=== PATIENT | female | born 1955 | race Caucasian/White ===

== ENCOUNTER → 2017-09-22 17:32 | Outpatient (CLI) | payer OTHER, SELFPAY ==
--- NOTE | 2017-09-22 17:30 | MRI_ITS ---
STUDY: MRI LUMBAR SPINE WITHOUT CONTRAST REASON FOR EXAM: Female, 62 years old. Low back and bilateral leg pain with burning sensation legs. TECHNIQUE: Standardized fat and water weighted pulse sequences were obtained in the sagittal and axial planes. COMPARISON: None FINDINGS: There are six non-rib bearing lumbar-like vertebra. For the purpose of this report, the most caudal non-rib bearing vertebra is considered to represent the S1 vertebra, consistent with lumbarization of the S1 vertebra. Plain film x-ray examination of the lumbar spine would be necessary for level verification prior to instrumentation, or surgery, based on the findings of this report. There is an exaggerated lumbar lordosis. There is a mild levoscoliosis of the lumbar spine. Normal conus medullaris that terminates at the inferior endplate of L1 vertebra. L1-2: There is disc desiccation, severe loss of the disc height, endplate spondylosis with annular bulging. There is a prominent Schmorl's node deformity the superior endplate of the L2 vertebra. This mild facet arthrosis. Normal central canal with patent intervertebral neural foramina. L2-3: There is a wedge-shaped deformity of the anterior column of the L3 vertebra with an estimated 20% loss of vertical height but without bone marrow edema. There are prominent Schmorl's node deformities of the right parasagittal regions of the superior and inferior endplate of the L3 vertebra (coronal T1 series 7, image 9; sagittal T2 series 8, image 8). There is broad-based posterior bulging with a right foraminal disc osteophyte complex (sagittal T2 series 2, image 10, superimposed upon mild facet arthrosis. There remains a normal central canal. The intervertebral neural foramina remain patent without morphologic neural impingement. L3-4: There is collapse of the intervertebral disc with endplate irregularity and a prominent Schmorl's node deformity superior endplate of the L4 vertebra with mild juxta-endplate bone marrow edema most compatible with type I discogenic endplate degeneration. There is a 5 mm L3 retrolisthesis relationship to the L4 vertebra with uncovering the annulus and with mild annular bulging. There is moderate retrodiscal foraminal narrowing of the right side (sagittal T2 series 2, image 10; sagittal T1 series 3, image 10), but without demonstrated neural impingement. Normal central canal and patent left L2-3 intervertebral neural foramina. L4-5: There is disc desiccation, severe loss of the disc height posteriorly with moderate bilateral facet arthrosis with osseous and ligamentous hypertrophy. There is a 5 mm L4 retrolisthesis in relationship to the L5 vertebra with diffuse uncovering the annulus and with annular bulging. Normal central canal with patent intervertebral neural foramina. L5-S1: There is disc desiccation, mild to moderate loss of the disc height posteriorly, mild circumferential annular bulging with severe bilateral hypertrophic facet arthrosis, with both osseous and ligamentous hypertrophy (axial T2 series 5, image 11). Normal central canal with patent intervertebral neural foramina. S1-2: There is partial lumbarization the S1 vertebra (coronal T1 series 7, image 12). There is disc desiccation, mild loss of the disc height, minimal annular bulging and severe facet arthrosis. Normal central canal with patent intervertebral neural foramina. There is possible bilateral spondylolysis of the pars interarticulares (sagittal T1 series 3, images 4 and 13; axial T2 series 5, image 9; axial T1 series 6, image 9), however there is no demonstrated spondylolisthesis. CT imaging would be necessary for confirmation of spondylolysis. Normal visualized sacral ala. There is a solitary intraosseous low signal lesion suggesting intraosseous area of ossification within the right iliac wing (sagittal T1 series 7, image 13; axial T2 series 5, image 9), of indeterminate etiology. No additional osseous lesions can be identified within the vertebral bodies. This probably represents a bone island however further evaluation is recommended to exclude an osteoblastic lesion. Normal visualized paraspinous soft tissue structures. MRI/Spine Lumbar (Routine) IMPRESSION: 1. There are six non-rib bearing lumbar-like vertebra. For the purpose of this report, the most caudal non-rib bearing vertebra is considered to represent the S1 vertebra, consistent with lumbarization of the S1 vertebra. Plain film x-ray examination of the lumbar spine would be necessary for level verification prior to instrumentation, or surgery, based on the findings of this report. 2. Solitary intraosseous low signal lesion within the right iliac wing of indeterminate etiology. This probably represents a bone island. No additional lesions can be identified. Further evaluation however is recommended to exclude an osteoblastic lesion. 3. Multilevel degenerative disease, endplate spondylosis and facet arthroses of the entire lumbar spine with an exaggerated lordosis and levoscoliosis. 4. Wedge-shaped deformity of the L3 vertebra with prominent Schmorl's node deformities. 5. L3 retrolisthesis. 6. Normal central canal and patent intervertebral neural foramina at all levels. N.B. : The above information has been verbally conveyed by Bryan Zhu DO to , Referring Physician, on 09/23/2017 14:20:00 (ET). Electronically Signed: Bryan Zhu DO at 13:38 EDT Tel , Service support , N.B. : The above information has been verbally conveyed by Bryan Zhu DO to , Referring Physician, on 09/23/2017 14:20:00 (ET).
== END ==
PROVIDERS: Family Provider Family Medicine; PCP Family Medicine; Visit Provider Anesthesiology
DX: M54.16 Radiculopathy, lumbar region (principal)
CPT/HCPCS: 72148

== ENCOUNTER → 2017-09-23 17:04 | Outpatient (CLI) | payer OTHER, SELFPAY ==
--- NOTE | 2017-09-23 17:13 | RAD_ITS ---
STUDY: X-RAY - THORACIC SPINE REASON FOR EXAM: Female, 62 years old. Bony lesion found on MRI, follow-up. TECHNIQUE: 3 view(s) of the thoracic spine were obtained. COMPARISON: None. FINDINGS: Normal kyphosis of the thoracic spine. There is no substantial scoliosis. There is demineralization of the thoracic spine with endplate spondylosis. There is multilevel disc space narrowing of the thoracic spine. The soft tissue structures are unremarkable. RAD/Thoracic Spine 3 Views IMPRESSION: Diffuse degenerative changes with no evidence of compression deformity, sclerotic lesion or malalignment. Electronically Signed: Kirill Mariscal DO at 9:48 EDT , Service support ,
--- NOTE | 2017-09-23 17:13 | RAD_ITS ---
STUDY: X-RAY - LUMBAR SPINE REASON FOR EXAM: Female, 62 years old. Bony lesion found on MRI. Bilateral radiculopathy. TECHNIQUE: 3 view(s) of the lumbar spine were obtained. COMPARISON: None FINDINGS: Normal lumbar lordosis. Mild degenerative levoscoliotic curve is present. There is a normal alignment of the vertebrae. There is diffuse demineralization with multi-level endplate spondylosis. There is multi-level degenerative disc disease with multi-level disc space narrowing. There is predominant degenerative change at C2-3 with chronic appearing wedge shape deformity of L1 and superior endplate of L2. Diffuse facet arthropathy is present most prominent at the right C4/5 region. The soft tissue structures are unremarkable. RAD/Lumbar Spine 2 or 3 Views IMPRESSION: Diffuse degenerative changes with chronic appearing wedge shape deformity of L1 and compression of the superior endplate of L2. Severe right L4/5 facet arthropathy. Electronically Signed: Kirill Mariscal DO at 9:50 EDT , Service support ,
--- NOTE | 2017-09-23 17:14 | RAD_ITS ---
STUDY: X-RAY - SACRUM/COCCYX REASON FOR EXAM: Female, 62 years old. Bony lesion found on MRI. TECHNIQUE: 3 view(s) of the sacrum and coccyx were obtained. COMPARISON: None. FINDINGS: Normal bilateral sacroiliac joints. Normal visualized sacral ala and fused sacral bodies. Normal sacrococcygeal junction with a normal angulation. Normal coccygeal segments. The presacral soft tissue structures are unremarkable. There is a dense sclerotic region within the right medial iliac bone consistent with bone island measuring approximately 1.7 cm. RAD/Sacrum-Coccyx min 2 Views IMPRESSION: 1. Right iliac incidental bone island with otherwise no evidence of acute process. Electronically Signed: Kirill Mariscal DO at 9:48 EDT , Service support ,
--- NOTE | 2017-09-23 17:14 | RAD_ITS ---
STUDY: X-RAY - PELVIS REASON FOR EXAM: Female, 62 years old. Bony lesion from an MRI TECHNIQUE: One view of the pelvis was obtained. COMPARISON: None. FINDINGS: Bilateral total hip replacements with hardware position. There are no acute fractures or dislocations. A bone island is identified in the right upper iliac bone RAD/Pelvis 1 or 2 Views IMPRESSION: Total hip replacements with hardware in good position. No fracture. A 1.5 cm bone island in the right iliac bone near the crest Electronically Signed: Oleg Ambriz, at 7:19 EDT Tel , Service support ,
== END ==
PROVIDERS: Family Provider Family Medicine; PCP Family Medicine; Visit Provider Anesthesiology
DX: M54.16 Radiculopathy, lumbar region (principal)
CPT/HCPCS: 72072; 72100; 72170; 72220

== ENCOUNTER 2017-10-29 18:43 | Emergency (ER) | payer OTHER, SELFPAY ==
[2017-10-29 18:43] VITALS: BP 130/73; PULSE 80; RESP 14; TEMP 36.1; O2SAT 95; BMI 30.7
--- NOTE | 2017-10-29 19:17 | ED.DCSUM_ITS ---
- ER Visit Summary Date of Service: 10/29/17 Chief Complaint: Dysuria History of Present Illness: The patient is a 62 F who reports dysuria and frequency over the past 2 days. Patient states that she has a tipped bladder and gets frequent UTIs, often for 5 a year. She denies back pain or fever. She had no vomiting. She is already taking Azo. Physical Examination: Vital signs unremarkable. Patient sitting in a bedside chair. She is in no acute distress. Heart is regular rate and rhythm. Lung sounds are clear. Abdomen is soft and nontender. Back examination was no CVA tenderness. Test Results: [] Emergency Department Course and Treatment: Because the patient has had frequent UTIs with the exact same symptoms she will be treated with a course of Bactrim which she states she normally does very well with. Urine will be sent for culture. Treatment Plan: [] Disposition: Discharge Impression: Cystitis This note was generated with [employer] dictation software. It may contain incorrect words, spelling, and punctuation that were not noted in review of the chart prior to signing ED Disposition - Plan for ED Patient: Chief Complaint: Complaint Referrals: Reji Mckeon MD [Primary Care Provider] -
--- NOTE | 2017-10-29 19:17 | ED.DEP ---
ED Disposition - Plan for ED Patient: Disposition: Home or Assisted Living Chief Complaint: Complaint Instructions: ED UTI Cystitis Female Prescriptions: Smz/Tmp Ds [Bactrim Ds] 1 tablet PO BID #6 tablet Referrals: Reji Mckeon MD [Primary Care Provider] - 1 Week
[2017-10-29] MEDS: Smz/Tmp Ds Tablet 1 TABLET PO (19:35)
== END 2017-10-29 19:38 | disposition home or self-care (01) ==
LOC: ED 19:32
PROVIDERS: Emergency Provider Emergency Medicine; Family Provider Family Medicine; PCP Family Medicine
DX: N30.90 Cystitis, unspecified without hematuria (principal); I10 Essential (primary) hypertension; F41.9 Anxiety disorder, unspecified; F32.9 Major depressive disorder, single episode, unspecified; E78.00 Pure hypercholesterolemia, unspecified; M54.9 Dorsalgia, unspecified; Z87.440 Personal history of urinary (tract) infections; Z86.73 Personal history of transient ischemic attack (TIA), and cerebral infarction without residual deficits; Z79.82 Long term (current) use of aspirin; Z79.899 Other long term (current) drug therapy
CPT/HCPCS: 87086; 87088; 87186; 99283

== ENCOUNTER → 2017-11-25 19:12 | Outpatient (CLI) | payer OTHER, SELFPAY ==
[2017-11-25 20:10] LABS: Amphetamine Urine VISTA NEGATIVE (<1000 ng/mL); Barbiturate Urine VISTA NEGATIVE (< 200 ng/mL); Benzodiazepine Urine VISTA NEGATIVE (< 200 ng/mL); Cocaine Urine VISTA NEGATIVE (< 300 ng/mL); Ecstacy Urine VISTA NEGATIVE (< 500 ng/mL); Methadone Urine VISTA NEGATIVE (< 300 ng/mL); PCP Urine VISTA NEGATIVE (< 25 ng/mL); THC Urine VISTA NEGATIVE (< 50 ng/mL); Vista UDS pH Range 6
== END ==
PROVIDERS: Family Provider Family Medicine; PCP Family Medicine; Visit Provider Anesthesiology
DX: F11.20 Opioid dependence, uncomplicated (principal)
CPT/HCPCS: 80307

== ENCOUNTER → 2017-12-29 09:10 | Outpatient (CLI) | payer OTHER, SELFPAY ==
--- NOTE | 2017-12-29 09:14 | RAD_ITS ---
STUDY: X-RAY - LEFT ANKLE REASON FOR EXAM: Female, 62 years old. Pain and swelling TECHNIQUE: Three view(s) of the ankle were obtained. COMPARISON: None. FINDINGS: Bones: There are no acute osseous abnormalities. There is a moderate spur off the inferior calcaneus. Joints: There are moderate degenerative changes in the midfoot. Soft tissues: There is mild soft tissue swelling medially. RAD/Ankle min 3 Views IMPRESSION: No acute osseous abnormalities are seen. There is medial soft tissue swelling. Electronically Signed: Netta Cali MD at 20:03 EDT Tel Direct: [phone], Service support ,
== END ==
PROVIDERS: Family Provider Family Medicine; PCP Family Medicine; Visit Provider Anesthesiology
DX: M25.572 Pain in left ankle and joints of left foot (principal)
CPT/HCPCS: 73610

== ENCOUNTER 2018-04-24 11:10 | Observation (INO) | payer OTHER, SELFPAY ==
[2018-04-24] VITALS (10 sets, daily range): BP systolic 137–157; BP diastolic 74–98; PULSE 71–89; RESP 9–20; TEMP 36.8–37.1; O2SAT 95–100; BMI 33.2; BMI 33.1
--- NOTE | 2018-04-24 11:22 | EKG12_ITS ---
Test Reason : CP Blood Pressure : / mmHG Vent. Rate : 088 BPM Atrial Rate : 088 BPM P-R Int : 174 ms QRS Dur : 104 ms QT Int : 386 ms P-R-T Axes : -15 090 001 degrees QTc Int : 467 ms Normal sinus rhythm Rightward axis Borderline ECG Confirmed by TENZIN TAN, VANESSA ([id number]), image editor MOISE DONALDSON ([id number]) on 04/25/2018 3:17:04 PM Referred By: EDDIE Confirmed By:VANESSA DAVE MD
--- NOTE | 2018-04-24 11:22 | RAD_ITS ---
STUDY: X-RAY CHEST REASON FOR EXAM: Female, 63 years old. Chest discomfort. TECHNIQUE: Single AP portable view of the chest. COMPARISON: None. FINDINGS: EKG electrodes are seen. The lungs are clear and expanded. There is no demonstrated pleural abnormality. Normal size heart. Normal mediastinum and jessica. Normal visualized pulmonary arteries. There is atherosclerotic calcification of the aortic arch with tortuosity. Normal visualized thoracic spine. Normal visualized ribs, clavicles, and shoulders. There is no demonstrated abnormality of the visualized soft tissue structures of the upper abdomen. RAD/Chest 1 View (Portable) IMPRESSION: No acute abnormality seen. Electronically Signed: Nikos Romero MD at 11:39 EST Tel [phone], Service support ,
--- NOTE | 2018-04-24 11:23 | ED.VISSUMM ---
- ER Visit Summary Date of Service: 04/24/18 Chief Complaint: Chest pain History of Present Illness: The patient is a 63 F presenting with chest pain. Patient states she has been weak and tired over the past couple days. She has had nausea. Today she noted chest pain when she woke up. She states this worsened when she walked up the stairs and exerting herself. She has associated shortness of breath, diaphoresis, nausea, lightheadedness. She has not had these symptoms in the past. She has a history of hypertension, hypercholesterolemia. She is off her cholesterol meds due to elevated LFTs. No PE/DVT risk factors. She is not a smoker. Physical Examination: Vitals are stable. Patient is afebrile. Alert no acute distress. HEENT exam is unremarkable. Neck is supple. Lungs are clear and equal bilaterally. Heart is regular rate and rhythm. Abdomen is soft nontender nondistended. Extremities are unremarkable. Skin is warm and dry. No focal neurologic deficit. Remainder of exam is unremarkable. Emergency Department Course and Treatment: Patient was given aspirin on arrival. Chest x-ray shows no acute process. EKG is sinus rate of 88. CBC, chemistries are unremarkable other than creatinine 1.12. Troponin is negative. D-dimer is elevated at 0.66. CTA chest was obtained which shows no evidence of PE. On reevaluation, patient is chest pain-free. Discussed with the hospitalist for observation. Disposition: Observation Impression: Chest pain This note was generated with [employer] dictation software. It may contain incorrect words, spelling, and punctuation that were not noted in review of the chart prior to signing ED Disposition - Plan for ED Patient: Chief Complaint: Chest Pain Referrals: Reji Mckeon MD [Primary Care Provider] -
[2018-04-24 11:38] LABS: Absolute Lymphocyte Count 3.03 X10^3/ul (0.83-4.51); Absolute Neutrophil Count 3.3 X10^3/uL (2.0-7.7); Basophil# 0.03 X10^3/uL; Basophil% 0.4 % (0-1); Differential Indicated SCAN CRITERIA MET; Eosinophil# 0.05 X10^3/uL; Eosinophils% 0.7 % (0-5); Hematocrit 44.8 % (37-47); Hemoglobin 14.8 g/dl (12.0-15.0); Lymphocyte # 3.03 X10^3/ul (4.0); Lymphocyte % 44.6 % (19-41); Mean Corpuscular Hgb 31.4 pg (27.0-32.0); Mean Corpuscular Volume 95.1 fL (81-99); Monocyte# 0.39 X10^3/uL; Monocyte% 5.7 % (0-10); Neutrophil # 3.28 X10^3/uL (2.7-7.7); Neutrophil % 48.3 % (47-70); POSITIVE COUNT NO; POSITIVE DIFFERENTIAL NO; POSITIVE MORPHOLOGY YES; Platelet Count 264 K/mm3 (150-450); RBC Distribution Width CV 12.5 % (11.6-14.6); RBC Distribution Width SD 43.9 fl (35.1-43.9); Red Blood Count 4.71 M/mm3 (4.2-5.4); White Blood Count 6.8 K/mm3 (4.4-11.0)
[2018-04-24] MEDS: Aspirin 81 MG TAB.CHEW 324 MG PO (11:45)
[2018-04-24 11:48] LABS: D-Dimer Quantitative (DVT/PE) 0.66 FEU/ug/m (0.27-0.49)
--- NOTE | 2018-04-24 11:49 | ED.RN ---
D DIMER 0.66 DR GRIGSBY
[2018-04-24 11:50] LABS: Reactive Lymphocyte 1+
[2018-04-24 11:52] LABS: BUN 17 mg/dL (7-18); Creatinine, Serum 1.12 mg/dL (0.55-1.02); EST Glomerular Filtration Rate 52 mL/min (>60); Estimated Creatinine Clearance 55.97 ml/min; Glucose 94 mg/dL (74-106)
[2018-04-24 11:53] LABS: Anion Gap 12 (5-15); BUN/Creat Ratio 15.2 RATIO (10-20); Calcium,Total 9.7 mg/dL (8.5-10.1); Chloride 102 mmol/L (98-107); Est Glom Filt Rate - Afr Amer 63 mL/min (>60); Potassium 3.5 mmol/L (3.5-5.1); Sodium Level 141 mmol/L (136-145)
--- NOTE | 2018-04-24 11:59 | CT_ITS ---
STUDY: CTA CHEST REASON FOR EXAM: Female, 63 years old. Elevated d-dimer. RADIATION DOSAGE (If Supplied By Facility): CTDIvol = ( 14.42 ) mGy, DLP = ( 650.87 ) mGycm TECHNIQUE: The examination was performed with the intravenous administration of 100 ml of Isovue 370 contrast material. Post-processing of the angiographic images was performed, with multiplanar reformation and 3D reconstruction. Individualized dose optimization techniques were used for this CT. COMPARISON: None. FINDINGS: Normal enhancement of the main pulmonary artery and right and left pulmonary arteries. Normal enhancement of the bilateral peripheral pulmonary arteries. There is no demonstrated pulmonary embolism. Normal thoracic aorta and visualized great vessels. There is no demonstrated aortic dissection. Normal heart and pericardium. Normal mediastinum. Normal hilar regions. Normal visualized trachea and bronchi. The lungs are well expanded. Normal pulmonary parenchyma. Normal pleura. Normal chest wall structures. Normal osseous structures. Normal visualized upper abdomen. CT/CTA Chest W/WO Contrast IMPRESSION: Normal CTA chest examination, without a demonstrated pulmonary embolism or arterial dissection. No evidence for acute chest disease. Electronically Signed: Chino Lazar MD at 12:32 EST , Service support ,
[2018-04-24] MEDS: 0.9% Normal Saline 1,000 ML 999 ML IV (12:38)
[2018-04-24] MEDS: Ondansetron 4 MG/2 ML Vial IV (12:38)
--- NOTE | 2018-04-24 13:15 | NURSING ---
DR SOL FOR DR MORGAN
--- NOTE | 2018-04-24 13:21 | HP.PCM_ITS ---
Problem List (1) Chest pain Status: Acute Qualifiers: Chest pain type: unspecified Qualified Code(s): R07.9 - Chest pain, unspecified (2) Hypertension Status: Chronic Qualifiers: Hypertension type: essential hypertension Qualified Code(s): I10 - Essential (primary) hypertension (3) Chronic pain Status: Chronic Qualifiers: Chronic pain type: chronic pain syndrome Qualified Code(s): G89.4 - Chronic pain syndrome (4) Hyperlipidemia Status: Chronic Qualifiers: Hyperlipidemia type: unspecified Qualified Code(s): E78.5 - Hyperlipidemia, unspecified History of Present Illness Date of Admission: 04/24/18 Chief Complaint: Nausea, fatigue - 6 weeks. Chest pain - 1 day The patient is a 63 year old F with past medical history of chronic back pain, following pain management, hypertension who comes in with a 1 day history of chest discomfort. Patient has been complaining of nausea and fatigue ongoing for 6 weeks. She had seen her primary care doctor and was treated for dyspepsia with ranitidine with little effect. She had followed up with her primary care doctor and was recently started on metoprolol for uncontrolled blood pressure. 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 Complains of fatigue with and without exertion. Has not had any heart troubles until today. Whilst feeding her animals, she had a 10-minute chest discomfort that came on suddenly radiated to both shoulders, associated with diaphoresis and worsening nausea but no vomiting. She felt a little lightheaded and went to sit down. Denies any palpitations no presyncope or syncope. He called her primary care physician and was asked to come to the ED. Vitals in the emergency room showed temperature of 80 8.8F, heart rate 88, blood pressure 157/87, respiratory rate 20, SPO2 100% on room air. Admitting blood work showed unremarkable CBCD. D-dimer was elevated at 0.66, BMP showed sodium 141, potassium 3.5, chloride 102, bicarbonate 27 BUN 17, creatinine 1.12 Past Medical History Past Medical History (Chronic Problems): Chronic Problems Hypertension (Chronic) Chronic pain (Chronic) Hyperlipidemia (Chronic) History of TIA (transient ischemic attack) (Chronic) Allergies No Known Allergies Allergy (Verified 04/24/18 11:17) Home Medications: Ambulatory Orders Medication Instructions Recorded Atorvastatin Calcium [Lipitor] 20 mg PO DAILY 12/19/13 Gabapentin [Neurontin] 300 mg PO TID 05/31/13 Lisinopril [Zestril] 40 mg PO DAILY 05/31/13 Multivitamins,Therapeutic 1 tablet PO DAILY 05/31/13 [Multivitamin] Zolmitriptan [Zomig] 5 mg PO DAILY PRN PRN 05/31/13 Hydrochlorothiazide [Hctz] 12.5 mg PO DAILY 06/11/15 Venlafaxine HCl 50 mg PO BID 06/11/15 Calcium Carb/Vitamin D 1 tab PO DAILY@0800 10/12/16 [Caltrate-600 With Vit D Tab] L.acidoph,Paracasei, B.lactis 1 each PO DAILY 10/12/16 [Probiotic] Acetaminophen [Tylenol] 1,000 mg PO Q8 #90 tablet 10/13/16 Aspirin 325 mg PO BIDCM #30 tablet 10/13/16 Doxycycline 100 mg PO BID #14 capsule 10/13/16 Famotidine [Pepcid] 20 mg PO DAILY #30 tablet 10/13/16 Ferrous Sulfate 325 mg PO BIDCM #30 tablet 10/13/16 Folic Acid 1 mg PO BIDCM #30 tablet 10/13/16 Oxycodone [Oxyir] 5 - 10 mg PO Q4H PRN PRN #60 tablet 10/13/16 Senna/Docusate Sodium [Senokot-S] 2 tablet PO BID #20 tablet 10/13/16 Smz/Tmp Ds [Bactrim Ds] 1 tablet PO BID #6 tablet 10/29/17 Surgical History: hysterectomy, total hip arthroplasty - bilateral, total knee arthroplasty - bilateral Psychiatric History: No pertinent psych hx PHARMACOGENETICIST History: No pertinent PHARMACOGENETICIST history Lives: Spouse/ Significant Other Smoking Status: Never smoker Tobacco Use: Non-smoker Alcohol: None Drugs: None - *Family History Maternal History Items: Diabetes, Heart Disease Sibling History Items: Cancer - throat and lung cancer Review of Systems Constitutional: Reports: Malaise, Weakness, Fatigue. Denies: Anorexia, Chills, Fever, Weight Change Eyes: Denies: Blurred vision, Cataracts, Conjunctivae Inflammation, Pain, Redness, Vision Change HEENT: Denies: Difficulty Hearing, Difficulty Swallowing, Head Aches, Hearing Changes, Nasal bleeding, Nasal Congestion, Post Nasal Drip, Sinus Congestion, Sinus Drainage Cardiovascular: Reports: Chest Pain, Chest Pressure, Edema - occasional, franck left leg. Denies: Orthopnea, Palpitations, Paroxysmal Noc. Dyspnea Respiratory: Denies: Cough, Hemoptysis, Pleuritic Pain, Shortness of breath at rest, Shortness of breath upon exertion, Sputum production Gastrointestinal: Denies: Abdominal Pain, Constipation, Nausea, Vomiting Genitourinary: Denies: Dysuria, Frequency, Incontinence Gynecological: Denies: Breast symptoms, Excessively long or heavy periods, Vaginal discharge, Vaginal itching Musculoskeletal: Denies: Joint Pain, Joint stiffness, Joint swelling, Joint Tenderness Skin: Reports: Wounds - old right estes wound. Denies: Rash Neurological: Denies: Difficulty swallowing, Focal weakness, Numbness, Tingling Psychiatric: Denies: Anxiety, Depression, Homicidal Ideations, Suicidal Ideations Endocrine: Denies: Heat/ Cold Intolerance Hematologic/ Lymphatic: Denies: Easy Bruising, Easy Bleeding VTE Information - Inpt Only VTE Present on Admission: No VTE Pharm Prophylaxis ordered?: Yes Patient Problems: Active and Suspected Problems Chest pain (Acute) - Physical Exam General: Alert, Oriented x3, Cooperative, No apparent distress HEENT: Atraumatic, PERRLA, EOMI, Normocephalic Oral: Moist Mucosa Neck: Supple Lungs: Clear to auscultation, Normal air movement Cardiovascular: Regular rate, Regular Rhythm, Normal S1, Normal S2, No murmurs Abdomen: Bowel Sounds Present, Soft, Non Tender, Non-Distended, No Hepato-splenomegaly Extremities: No edema Skin: No rashes, No breakdown Musculoskeletal: No Tenderness to Palpation of Joints or Extremities Lymphatic: No Cervical, Supraclavicular, or Inguinal Adenopathy Neurological: Cranial nerves II-XII grossly intact, Neuro grossly intact Psych/Mental Status: Normal Affect, Appropriate Vital Signs Temp Pulse Resp BP Pulse Ox 98.8 F 75 10 L 144/85 H 97 04/24/18 11:11 04/24/18 12:39 04/24/18 12:39 04/24/18 12:39 04/24/18 12:39 Oxygen Delivery Method Room Air Weight: 108 kg Body Mass Index (BMI) 33.2 Laboratory Tests Past 24 Hrs 04/24/18 04/24/18 04/24/18 11:18 11:18 11:18 WBC 6.8 RBC 4.71 Hgb 14.8 Hct 44.8 MCV 95.1 MCH 31.4 MCHC 33.0 RDW 12.5 RDW Differential 43.9 Plt Count 264 MPV 10.0 Immature Gran % (Auto) 0.300 Neut % (Auto) 48.3 Lymph % (Auto) 44.6 H Hall % (Auto) 5.7 Eos % (Auto) 0.7 Baso % (Auto) 0.4 Absolute Neuts (auto) 3.3 Absolute Lymphs (auto) 3.03 Total Counted Not Reportable Reactive Lymphocytes 1+ D-Dimer Quant (PE/DVT) 0.66 H* Sodium 141 Potassium 3.5 Chloride 102 Carbon Dioxide 27.0 Anion Gap 12 BUN 17 Creatinine 1.12 H Estim Creat Clear Calc 55.97 Est GFR (MDRD) Af Amer 63 Est GFR (MDRD) Non-Af 52 L BUN/Creatinine Ratio 15.2 Glucose 94 Calcium 9.7 Troponin I < 0.015 Assessment/Plan All Active Problems Chest pain (Acute) The patient is a 63 year old F with past medical history of chronic back pain, following pain management, hypertension who comes in with a 1 day history of chest discomfort and a 6 week of fatigue and nausea. 1. Chest pain, atypical, history of hypertension, hyperlipidemia, stable vitals, no acute ST-T changes on EKG, troponins x1 negative Plan: Admit to PCU, monitor on telemetry, trend cardiac enzymes, stress test in a.m., lipid profile in a.m. 2. Recent fatigue, chronic nausea, unclear etiology, check HbA1c, TSH, PT and OT to evaluate and treat 3. Hypertension, uncontrolled, recently had metoprolol added to her lisinopril hydrochlorothiazide, will continue to monitor on these medications with as needed hydralazine also 3. Elevated creatinine secondary to dehydration, not KIYA, will give IV fluids, repeat BMP in a.m. 4. Hyperlipidemia, on statin, lipid profile in a.m., HbA1c in a.m. 5. Chronic back pain, following pain management, continue on home pain regimen 6. Anxiety disorder, on Effexor, continue same 7. DVT PPx - Heparin SC Code Visit OBSV E&M: 23835 Initial observation care L3
--- NOTE | 2018-04-24 13:21 | NURSING ---
PCU CP PAINTSIL
--- NOTE | 2018-04-24 14:03 | EKG12_ITS ---
Test Reason : CP Blood Pressure : / mmHG Vent. Rate : 068 BPM Atrial Rate : 068 BPM P-R Int : 188 ms QRS Dur : 108 ms QT Int : 422 ms P-R-T Axes : -16 082 002 degrees QTc Int : 448 ms Normal sinus rhythm Normal ECG When compared with ECG of 24-APR-2018 11:12, MANUAL COMPARISON REQUIRED, DATA IS UNCONFIRMED Confirmed by NOMAN TAN, ARCHIE ([id number]), non linear editor MOISE DONALDSON ([id number]) on 05/01/2018 2:27:09 PM Referred By: EBENEZER Confirmed By:ARCHIE TINEO MD
[2018-04-24] MEDS: 0.9% Normal Saline 1,000 ML 75 ML IV (14:29)
[2018-04-24 15:15] LABS: Thyroid Stim Hormone (TSH) 0.76 uIU/mL (0.358-3.74)
[2018-04-24] MEDS: oxyCODONE 5 MG Tablet PO (16:29)
[2018-04-24] MEDS: Folic Acid 1 MG Tablet PO (16:30)
[2018-04-24] MEDS: Ferrous Sulfate 325 MG Tablet PO (16:30)
[2018-04-24] MEDS: Gabapentin 300 MG Capsule PO (22:08)
[2018-04-24] MEDS: Doxycycline 100 MG CAPSULE PO (22:08)
[2018-04-24] MEDS: Smz/Tmp Ds Tablet 1 TABLET PO (22:08)
[2018-04-24] MEDS: Venlafaxine HCl 25 MG Tablet 50 MG PO (22:08)
[2018-04-24] MEDS: Acetaminophen 500 MG Tablet 1000 MG PO (22:12)
[2018-04-24] MEDS: Heparin Injection (Vial) 5,000 UNIT/ML VIAL 5000 UNIT SC (22:12)
[2018-04-25] MEDS: oxyCODONE 5 MG Tablet PO (00:16)
[2018-04-25 03:00] VITALS: PULSE 76
[2018-04-25 03:45] VITALS: BP 154/84; PULSE 77; RESP 16; TEMP 36.7; O2SAT 94
[2018-04-25] MEDS: Gabapentin 300 MG Capsule PO (05:24)
[2018-04-25] MEDS: Lisinopril 40 MG Tablet PO (05:24)
[2018-04-25] MEDS: Acetaminophen 500 MG Tablet 1000 MG PO (05:24)
[2018-04-25] MEDS: Aspirin E.C. 81 MG Tablet PO (05:25)
[2018-04-25 05:27] VITALS: BP 149/90; PULSE 77; RESP 16; TEMP 36.5; O2SAT 92
--- NOTE | 2018-04-25 05:55 | EKG12_ITS ---
Test Reason : AM EKG Blood Pressure : / mmHG Vent. Rate : 074 BPM Atrial Rate : 074 BPM P-R Int : 192 ms QRS Dur : 102 ms QT Int : 402 ms P-R-T Axes : 001 060 009 degrees QTc Int : 446 ms Normal sinus rhythm Normal ECG When compared with ECG of 24-APR-2018 14:13, MANUAL COMPARISON REQUIRED, DATA IS UNCONFIRMED Confirmed by NOMNA TAN, ARCHIE ([id number]), editor in chief newspaper MOISE DONALDSON ([id number]) on 05/01/2018 2:25:02 PM Referred By: DR SOL Confirmed By:ARCHIE TINEO MD
[2018-04-25 06:17] LABS: Absolute Lymphocyte Count 2.13 X10^3/ul (0.83-4.51); Absolute Neutrophil Count 1.3 X10^3/uL (2.0-7.7); Basophil# 0.02 X10^3/uL; Basophil% 0.5 % (0-1); Eosinophil# 0.05 X10^3/uL; Eosinophils% 1.3 % (0-5); Hemoglobin 13.1 g/dl (12.0-15.0); Lymphocyte # 2.13 X10^3/ul (4.0); Lymphocyte % 55.6 % (19-41); Mean Corpuscular Hgb 30.8 pg (27.0-32.0); Mean Corpuscular Volume 96.5 fL (81-99); Mean Platelet Vol. 9.8 fl (6.2-12.0); Monocyte# 0.36 X10^3/uL; Monocyte% 9.4 % (0-10); Neutrophil # 1.27 X10^3/uL (2.7-7.7); Neutrophil % 33.2 % (47-70); Platelet Count 215 K/mm3 (150-450); RBC Distribution Width CV 12.7 % (11.6-14.6); RBC Distribution Width SD 44.3 fl (35.1-43.9); Red Blood Count 4.25 M/mm3 (4.2-5.4); White Blood Count 3.8 K/mm3 (4.4-11.0)
[2018-04-25 06:23] LABS: POSITIVE COUNT NO; POSITIVE DIFFERENTIAL NO; POSITIVE MORPHOLOGY NO
[2018-04-25 06:25] LABS: Prothrombin Time (Protime)PT. 13.6 SECONDS (11.7-14.9)
[2018-04-25 06:26] LABS: Partial Thromboplast Time 32.9 Seconds (24.1-36.2)
[2018-04-25 06:50] LABS: Anion Gap 9 (5-15); BUN 15 mg/dL (7-18); Calcium,Total 8.8 mg/dL (8.5-10.1); Chloride 107 mmol/L (98-107); Cholesterol 180 mg/dL (200); Creatinine, Serum 0.94 mg/dL (0.55-1.02); EST Glomerular Filtration Rate 64 mL/min (>60); Est Glom Filt Rate - Afr Amer 77 mL/min (>60); Estimated Creatinine Clearance 66.69 ml/min; Glucose 95 mg/dL (74-106); High Density Lipoprotein 38 mg/dL; Potassium 4.2 mmol/L (3.5-5.1); Sodium Level 144 mmol/L (136-145); Triglycerides 273 mg/dL; Very Low Density Lipoprotein 55 mg/dL (5-40)
[2018-04-25 08:55] LABS: Hemoglobin A1c 5.7 % (4.2-6.3)
--- NOTE | 2018-04-25 09:26 | STRESSREP ---
Stress Test Report Date: 04/25/2018 Procedure: Pharmacologic stress nuclear imaging study Indications: Chest pain Consent: Per the patient Procedure: The patient underwent pharmacologic (Regadenoson) evaluation with a peak heart rate of 107 beats per minute (69 predicted maximal heart rate) and a peak blood pressure of 158/90 mmHg. The baseline ECG demonstrated normal sinus rhythm; nonspecific T wave abnormality. The peak pharmacologic ECG demonstrated no obvious ECG changes. There were no cardiac dysrhythmias pretest, during pharmacologic infusion, or recovery. There was no complaint of chest discomfort during pharmacologic infusion or recovery. The examination was discontinued secondary to completion of protocol. Impression: 1. Pharmacologic (Regadenoson) evaluation 2. Peak pharmacologic ECG with no obvious ECG changes. 3. There were no cardiac dysrhythmias pretest, during pharmacologic infusion, or recovery. 4. Nuclear images pending Myocardial perfusion imaging study: Technique: The patient was injected with 11.6 millicuries of technetium 99m Cardiolite and subsequently rest SPECT Cardiolite nuclear imaging was obtained in the horizontal long, vertical long, and short axis views. The patient underwent pharmacologic (Regadenoson) evaluation with a peak heart rate of 107 beats per minute (69 % percent predicted maximal heart rate) and a peak blood pressure of 158/90 mmHg. The patient was injected with 33.7 millicuries of technetium 99m Cardiolite and subsequently stress SPECT Cardiolite nuclear imaging was obtained in the horizontal long, vertical long, and short axis views. A gated Cardiolite study at peak stress was obtained. Interpretation: Rest and stress SPECT Cardiolite nuclear imaging status post realignment, normalization, and attenuation correction demonstrate at rest a small area of subtle diminished tracer uptake near the mid anterior segment which appears to improve/normalize following stress. There are similar type findings on the resting and stress polar map images. There is end systolic thickening and brightening. The gated Cardiolite study demonstrates myocardial thickening and inward wall motion. The reported LVEF is in the 73 %. Impression: 1. Stent stress SPECT Cardiolite nuclear images demonstrate myocardial perfusion changes at rest which appear to improve/normalize following stress appearing compatible shifting soft tissue attenuation/artifact with no myocardial perfusion changes considered diagnostic for associated stress-induced myocardial ischemia or previous myocardial injury/infarction. 2. The gated Cardiolite study reports an LVEF of 73%. This note was generated with adSage software. It may contain incorrect words, spelling, and punctuation that were not noted in checking the note before signing.
[2018-04-25] MEDS: Ondansetron 4 MG/2 ML Vial IV (09:51)
--- NOTE | 2018-04-25 10:59 | PCM.DC ---
- Discharge Diagnoses Current Active Problems: Current Active and Chronic Problems Chest pain (Acute) Hypertension (Chronic) Chronic pain (Chronic) Hyperlipidemia (Chronic) You will use the following diet at home:: No restrictions Your food should be the consistency of: Regular Your liquids should be the consistency of: Regular/Thin Discharge Activity: Return to Normal Activity Call your doctor if you observe: Shortness of breath, - - worsening abdominal pain. Instructions: ED Chest Pain NonCardiac Allergies/Adverse Reactions: Allergies No Known Allergies Allergy (Verified 04/24/18 11:17) Medications to take at Discharge Lisinopril [Zestril] 40 mg PO DAILY 05/31/13 Multivitamins,Therapeutic [Multivitamin] 1 tablet PO DAILY 05/31/13 Zolmitriptan [Zomig] 5 mg PO DAILY PRN PRN 05/31/13 Calcium Carb/Vitamin D [Caltrate-600 With Vit D Tab] 1 tab PO DAILY@0800 10/12/16 Amlodipine [Norvasc] 2.5 mg PO DAILY 04/24/18 Aspirin [Aspirin, Baby] 81 mg PO DAILY@0800 04/24/18 Cranberry 400 mg PO BID 04/24/18 Cyanocobalamin (Vitamin B-12) [Vitamin B-12] 1,000 mcg PO DAILY 04/24/18 Gabapentin [Neurontin] 400 mg PO TID 04/24/18 Hydrochlorothiazide [Hctz] 25 mg PO DAILY 04/24/18 Hydrocodone/Acetaminophen [Hydrocodone-Acetamin 7.5-325] 1 tab PO BID PRN 04/24/18 Loratadine [Claritin] 10 mg PO DAILY PRN 04/24/18 Methocarbamol [Robaxin] 500 mg PO QHS 04/24/18 Mupirocin [Bactroban] 1 applicatio TOPICAL TID 04/24/18 [place]-3 Fatty Acids/Fish Oil [Fish Oil 1,000 mg Capsule] 3 each PO DAILY 04/24/18 Sulfamethoxazole/Trimethoprim [Sulfamethoxazole-Tmp Ds Tablet] 1 tab PO BID 04/24/18 Venlafaxine HCl [Effexor] 100 mg PO BID 04/24/18 busPIRone [Buspar] 15 mg PO BID PRN 04/24/18 Acetaminophen [Tylenol] 500 mg PO Q6H PRN #1 tablet 04/25/18 Ondansetron HCl [Zofran] 8 mg PO TID PRN #30 tablet 04/25/18 Pantoprazole Sodium 40 mg PO DAILY #30 tablet. 04/25/18 The following prescriptions were given: Pantoprazole Sodium 40 mg PO DAILY #30 tablet. Ondansetron HCl [Zofran] 8 mg PO TID PRN #30 tablet PRN Reason: Nausea Primary Care Physician: Reji Mckeon MD [Primary Care Provider] - Within 2 Weeks Test Results: Test results from this visit will be discussed in further detail at your follow-up appointment, if applicable. Please Follow Up With: Lars Fox MD - Gastroenterology When: [address] Vazquez ([facility] surgery) Please Follow Up With: Zachary Vazquez MD - General Surgery When: [address] Fox (gastroenterology) Proposed Discharge Date: 04/25/18
[2018-04-25 11:00] VITALS: BP 147/78; PULSE 87; RESP 18; TEMP 36.7; O2SAT 95; O2SAT 97
--- NOTE | 2018-04-25 11:05 | DS.PCM_ITS ---
Discharge Date and Diagnosis - Problem List Patient Problems: Active and Suspected Problems Chest pain (Acute) Date of Admission: 04/24/18 Date of Discharge: 04/25/18 - Primary Discharge Diagnosis Active and Suspected Problems Chest pain (Acute) - Secondary Discharge Diagnosis Chronic Problems Hypertension (Chronic) Chronic pain (Chronic) Hyperlipidemia (Chronic) History of TIA (transient ischemic attack) (Chronic) Hospital Course and Treatment Imaging Results: 04/25/18 05:55 Nuclear Stress Test - Chemical [NM] AM (NON MEDS) Operations: None Procedures: Stress test Summary of Care Provided: The patient is a 63 year old F presents with chest pain. Cardiac work up occluding a stress test and a CT injury test was unremarkable. This felt that her chest pain was cardiac and not a pulmonary embolism. Patient's big complaint is just nausea and fatigue. Patient did have a TSH which was normal as well as hemoglobin A1c. Is unclear as to what is causing her fatigue and all as well as her nausea. But in regards to her nausea I recommend she stop her H2 joselin and started on proton pump inhibitor. I have also advised discontinuing the cam. I told her that I am not clear as to why she is having this issue but is been going on for about 6 weeks and could be related with some underlying gastritis. I recommended that she try that and also to follow-up with either gastroenterology or general surgery for upper endoscopy. I told her that I do not have a clear indication to order a CAT scan at this point time and a CAT scan would be of low yield to identifying gastritis anyways. Patient and her express understanding and expressed understanding about the medication changes as well as planned to follow-up with specialist for endoscopy. [] Patient Problems: Active and Suspected Problems Chest pain (Acute) - Physical Exam General: Alert, Cooperative, No apparent distress HEENT: Atraumatic, Normocephalic Oral: Moist Mucosa, No Gingival or Mucosal Lesions/ Ulcerations Neck: No Nodes, Thyroid Normal Size and Texture Lungs: Clear to auscultation, Normal air movement, No rhonchi, No wheeze Cardiovascular: Regular rate, Regular Rhythm, Normal S1, Normal S2, No murmurs Vital Signs Temp Pulse Resp BP Pulse Ox 36.5 C L 77 16 149/90 H 92 04/25/18 05:27 04/25/18 05:27 04/25/18 05:27 04/25/18 05:27 04/25/18 05:27 Oxygen Delivery Method Room Air Weight: 109.7 kg Body Mass Index (BMI) 33.1 Intake and Output for Last 24 Hours 04/23/18 04/24/18 04/25/18 23:59 23:59 23:59 Intake Total 2011 315 / 315 Balance 2011 315 / 315 Laboratory Tests Past 24 Hrs 04/24/18 04/24/18 04/24/18 11:18 11:18 11:18 WBC 6.8 RBC 4.71 Hgb 14.8 Hct 44.8 MCV 95.1 MCH 31.4 MCHC 33.0 RDW 12.5 RDW Differential 43.9 Plt Count 264 MPV 10.0 Immature Gran % (Auto) 0.300 Neut % (Auto) 48.3 Lymph % (Auto) 44.6 H [place] % (Auto) 5.7 Eos % (Auto) 0.7 Baso % (Auto) 0.4 Absolute Neuts (auto) 3.3 Absolute Lymphs (auto) 3.03 Total Counted Not Reportable Reactive Lymphocytes 1+ PT INR APTT D-Dimer Quant (PE/DVT) 0.66 H* Sodium 141 Potassium 3.5 Chloride 102 Carbon Dioxide 27.0 Anion Gap 12 BUN 17 Creatinine 1.12 H Estim Creat Clear Calc 55.97 Est GFR (MDRD) Af Amer 63 Est GFR (MDRD) Non-Af 52 L BUN/Creatinine Ratio 15.2 Glucose 94 Hemoglobin A1c Calcium 9.7 Troponin I < 0.015 Triglycerides Cholesterol LDL Cholesterol VLDL Cholesterol HDL Cholesterol TSH Lead 04/24/18 04/24/18 04/24/18 14:40 14:40 14:40 WBC RBC Hgb Hct MCV MCH MCHC RDW RDW Differential Plt Count MPV Immature Gran % (Auto) Neut % (Auto) Lymph % (Auto) [place] % (Auto) Eos % (Auto) Baso % (Auto) Absolute Neuts (auto) Absolute Lymphs (auto) Total Counted Reactive Lymphocytes PT INR APTT D-Dimer Quant (PE/DVT) Sodium Potassium Chloride Carbon Dioxide Anion Gap BUN Creatinine Estim Creat Clear Calc Est GFR (MDRD) Af Amer Est GFR (MDRD) Non-Af BUN/Creatinine Ratio Glucose Hemoglobin A1c Calcium Troponin I < 0.015 Triglycerides Cholesterol LDL Cholesterol VLDL Cholesterol HDL Cholesterol TSH 0.76 Lead Pending 04/24/18 04/25/18 04/25/18 16:47 05:50 05:50 WBC RBC Hgb Hct MCV MCH MCHC RDW RDW Differential Plt Count MPV Immature Gran % (Auto) Neut % (Auto) Lymph % (Auto) [place] % (Auto) Eos % (Auto) Baso % (Auto) Absolute Neuts (auto) Absolute Lymphs (auto) Total Counted Reactive Lymphocytes PT INR APTT D-Dimer Quant (PE/DVT) Sodium 144 Potassium 4.2 Chloride 107 Carbon Dioxide 28.0 Anion Gap 9 BUN 15 Creatinine 0.94 Estim Creat Clear Calc 66.69 Est GFR (MDRD) Af Amer 77 Est GFR (MDRD) Non-Af 64 BUN/Creatinine Ratio 16.0 Glucose 95 Hemoglobin A1c 5.7 Calcium 8.8 Troponin I < 0.015 Triglycerides 273 H Cholesterol 180 LDL Cholesterol 87 VLDL Cholesterol 55 H HDL Cholesterol 38 L TSH Lead 04/25/18 04/25/18 05:50 05:50 WBC 3.8 L RBC 4.25 Hgb 13.1 Hct 41.0 MCV 96.5 MCH 30.8 MCHC 32.0 RDW 12.7 RDW Differential 44.3 H Plt Count 215 MPV 9.8 Immature Gran % (Auto) 0.000 Neut % (Auto) 33.2 L Lymph % (Auto) 55.6 H [place] % (Auto) 9.4 Eos % (Auto) 1.3 Baso % (Auto) 0.5 Absolute Neuts (auto) 1.3 L Absolute Lymphs (auto) 2.13 Total Counted Not Reportable Reactive Lymphocytes PT 13.6 INR 1.0 APTT 32.9 D-Dimer Quant (PE/DVT) Sodium Potassium Chloride Carbon Dioxide Anion Gap BUN Creatinine Estim Creat Clear Calc Est GFR (MDRD) Af Amer Est GFR (MDRD) Non-Af BUN/Creatinine Ratio Glucose Hemoglobin A1c Calcium Troponin I Triglycerides Cholesterol LDL Cholesterol VLDL Cholesterol HDL Cholesterol TSH Lead Discharge Diet: No Restrictions Discharge Activity: Return to Normal Activity Call your doctor if you observe: Shortness of breath, - - worsening abdominal pain. Home Medications: Medications to take at Discharge Lisinopril [Zestril] 40 mg PO DAILY 05/31/13 Multivitamins,Therapeutic [Multivitamin] 1 tablet PO DAILY 05/31/13 Zolmitriptan [Zomig] 5 mg PO DAILY PRN PRN 05/31/13 Calcium Carb/Vitamin D [Caltrate-600 With Vit D Tab] 1 tab PO DAILY@0800 10/12/16 Amlodipine [Norvasc] 2.5 mg PO DAILY 04/24/18 Aspirin [Aspirin, Baby] 81 mg PO DAILY@0800 04/24/18 Cranberry 400 mg PO BID 04/24/18 Cyanocobalamin (Vitamin B-12) [Vitamin B-12] 1,000 mcg PO DAILY 04/24/18 Gabapentin [Neurontin] 400 mg PO TID 04/24/18 Hydrochlorothiazide [Hctz] 25 mg PO DAILY 04/24/18 Hydrocodone/Acetaminophen [Hydrocodone-Acetamin 7.5-325] 1 tab PO BID PRN 04/24/18 Loratadine [Claritin] 10 mg PO DAILY PRN 04/24/18 Methocarbamol [Robaxin] 500 mg PO QHS 04/24/18 Mupirocin [Bactroban] 1 applicatio TOPICAL TID 04/24/18 [place]-3 Fatty Acids/Fish Oil [Fish Oil 1,000 mg Capsule] 3 each PO DAILY 04/24/18 Sulfamethoxazole/Trimethoprim [Sulfamethoxazole-Tmp Ds Tablet] 1 tab PO BID 04/24/18 Venlafaxine HCl [Effexor] 100 mg PO BID 04/24/18 busPIRone [Buspar] 15 mg PO BID PRN 04/24/18 Acetaminophen [Tylenol] 500 mg PO Q6H PRN #1 tablet 04/25/18 Ondansetron HCl [Zofran] 8 mg PO TID PRN #30 tablet 04/25/18 Pantoprazole Sodium 40 mg PO DAILY #30 tablet. 04/25/18 Following Prescrptions Were Given to Patient: Pantoprazole Sodium 40 mg PO DAILY #30 tablet. Ondansetron HCl [Zofran] 8 mg PO TID PRN #30 tablet PRN Reason: Nausea Primary Care Physician: Reji Mckeon MD [Primary Care Provider] - Within 2 Weeks Please Follow Up With: Lars Fox MD - Gastroenterology When: [address] Vazquez ([facility] surgery) Please Follow Up With: Zachary Vazquez MD - General Surgery When: [address] Fox (gastroenterology) Patient Instructions: ED Chest Pain NonCardiac Disposition: Home Minutes spent on discharge:: 35 Patient Condition:: Good Medical Necessity - Tobacco Use Smoking Status: Never smoker Tobacco Use: Non-smoker Meaningful Use Info Meaningful Use Diagnoses (Choose all that apply): None applicable Code Visit OBSV E&M: 75714 Observation care discharge
[2018-04-25] MEDS: Ferrous Sulfate 325 MG Tablet PO (11:46)
[2018-04-25] MEDS: Multivitamins,Therapeutic Tablet 1 TABLET PO (11:46)
[2018-04-25] MEDS: Folic Acid 1 MG Tablet PO (11:46)
[2018-04-25] MEDS: Doxycycline 100 MG CAPSULE PO (11:46)
[2018-04-25] MEDS: Venlafaxine HCl 25 MG Tablet 50 MG PO (11:47)
[2018-04-25] MEDS: Smz/Tmp Ds Tablet 1 TABLET PO (11:47)
[2018-04-25] MEDS: Famotidine 20 MG Tablet PO (11:48)
[2018-04-25] MEDS: hydroCHLOROthiazide 12.5mg 12.5 MG PO (11:48)
[2018-04-26 10:23] LABS: Lead, Blood Adult 16+yrs 1 ug/dL (0-4)
== END 2018-04-25 11:01 | disposition home or self-care (01) ==
LOC: ED 11:28 → PCU 13:33
PROVIDERS: Admitting Provider Internal Medicine; Emergency Provider Emergency Medicine; Family Provider Family Medicine; PCP Family Medicine
DX: R07.89 Other chest pain (principal); I10 Essential (primary) hypertension; E78.5 Hyperlipidemia, unspecified; Z86.73 Personal history of transient ischemic attack (TIA), and cerebral infarction without residual deficits; Z79.899 Other long term (current) drug therapy; Z79.82 Long term (current) use of aspirin; R53.83 Other fatigue; G89.4 Chronic pain syndrome; F41.9 Anxiety disorder, unspecified; R06.00 Dyspnea, unspecified
CPT/HCPCS: 36415; 71045; 71275; 78452; 80048; 80061; 83036; 83655; 84443; 84484; 85025; 85379; 85610; 85730; 93005; 93017; 96361; 96372; 96374; 96376; 97802; 99218; 99283; A9500; J7030; Q9967; A4216; G0378; J2405; J2785

== ENCOUNTER → 2018-07-14 12:17 | Outpatient (CLI) | payer MEDICARE, SELFPAY ==
[2018-04-24 14:27] VITALS: BMI 33.1
[2018-07-14 12:47] LABS: Amphetamine Urine VISTA NEGATIVE (<1000 ng/mL); Barbiturate Urine VISTA NEGATIVE (< 200 ng/mL); Benzodiazepine Urine VISTA NEGATIVE (< 200 ng/mL); Cocaine Urine VISTA NEGATIVE (< 300 ng/mL); Ecstacy Urine VISTA POSITIVE (< 500 ng/mL); Methadone Urine VISTA NEGATIVE (< 300 ng/mL); PCP Urine VISTA NEGATIVE (< 25 ng/mL); THC Urine VISTA NEGATIVE (< 50 ng/mL); Vista UDS pH Range 6
== END ==
PROVIDERS: Family Provider Family Medicine; PCP Family Medicine; Referring Provider Anesthesiology; Visit Provider Anesthesiology
DX: F11.20 Opioid dependence, uncomplicated (principal)
CPT/HCPCS: 80307

== ENCOUNTER 2018-07-18 05:20 | Day surgery (SDC) | payer MEDICARE, SELFPAY ==
[2018-04-24 14:27] VITALS: BMI 33.1
[2018-07-18] VITALS (15 sets, daily range): BP systolic 105–143; BP diastolic 60–85; PULSE 70–101; RESP 14–18; TEMP 36.3–37.1; O2SAT 91–100; BMI 34.2
--- NOTE | 2018-07-18 07:15 | BON_PTH ---
PATIENT: MARCELINO RIVAS LOC: [facility] [place] U#:[id number] AGE/SX: 63/F ROOM: RE07/18/[address]: Dr. Lamar Perera DPM : [id number] BED: DIS: 07/18/2018 SPEC #: [id number] RECD: 07/18/18 13:30 STATUS: VICTORINA REMaria Eugenia #: [id number] ALOK: 07/18/18 07:[address]: Lamar Perera DEPT: SURGICAL PATHOLOGY RECD BY: Trevor Ratliff ENTERED: 07/18/18 13:52 SP TYPE: Bone OTHR DR: Dr. Reji Mckeon MD Tissues: Bone of foot, NOS Procedures: Decalcification bone/plaque Surgery Specimen Level III HEADER OPERATION: Arthrodesis foot, talonavicular joint fusion, exostectomy PRE-OP DIAGNOSIS: Osteoarthritis left ankle and foot, synovitis and tenosynovitis left ankle and foot TISSUE SUBMITTED: Talonavicular joint bone, osteophyte left foot MICROSCOPIC DIAGNOSIS Talonavicular joint bone, left foot: Fragments of bone with degenerative/reactive changes. HOWARD:sean 07/21/18 MICROSCOPIC DESCRIPTION Slides are reviewed. GROSS DESCRIPTION Received in fixative is one container labeled with the patient's name and designated talonavicular joint bone left foot. The specimen consists of two irregular fragments of pink-strong bone that in aggregate measure 2 x 1.6 x 0.3 cm. The specimen is totally submitted in one cassette after decalcification. / AM:sean 07/18/18 TC:5 CPT: 55761, 79237
[2018-07-18] MEDS: Cefazolin 2 GM in 0.9% Normal Saline 100 ML IV (07:29)
--- NOTE | 2018-07-18 07:55 | RAD_ITS ---
STUDY: X-RAY - LEFT FOOT CLINICAL: Female, 63 years old. Left arthrodesis, talonavicular joint and navicular cuneiform joint. Intraoperative fluoroscopy. TECHNIQUE: 10 intraoperative fluoroscopic view(s) of the foot. Fluoroscopy time was not recorded on the images or in PACS. COMPARISON: X-Ray Foot 07/18/2017, x-ray ankle 12/29/2017. FINDINGS: Images depict plate and screw fixation talonavicular dorsal surface, with longitudinal screw fixation. RAD/Foot min 3 Views IMPRESSION: Intact surgical construct. Correlate operative technique/report. Electronically Signed: Zachary Lopez MD at 12:17 EST Tel , Service support ,
[2018-07-18] MEDS: Bupivacaine Mpf 0.5% 30 ML VIAL (10:29)
--- NOTE | 2018-07-18 10:54 | PCM.IMDPSTOP ---
Immediate Post-Op Note Date of Procedure: 07/18/18 Primary Surgeon/Physician: Lamar Perear DPM community associate: Sriram Peñaloza Pre-Operative Diagnosis: L TN joint arthritis, L dorsal TN joint exostosis Post-Operative Diagnosis: same Surgery/Procedure Performed:: L TN arthrodesis, L TN dorsal exostectomy Description of Surgical Findings:: see dictation Estimated Blood Loss: minimal Specimen's removed: L TN dorsal bone/beaking Type of Anesthesia:: General/Supplemental - Admit VTE Documentation VTE Present on Admission: No VTE Mechan Device Prophylaxis: SCD's, Knee High ASHLYN Hose VTE Pharm Prophylaxis ordered?: Yes
--- NOTE | 2018-07-18 10:59 | DCINST_ITS ---
Discharge Activity: May Not Drive, May not drive while taking narcotic pain medications., May Not Shower, May Take a Tub Bath, Use Walker, Use Crutches Ice area for (Minutes): 20 - 20 minutes of each hour behind left knee while awake Weight Bearing Status: No weight bearing Keep extremity elevated above heart level: Operative Extremity Call your doctor if your incision/area has: Sudden Increased Bleeding Call your doctor if you observe: Fever of 101 or Higher, Shortness of breath, Dizziness, Chest pain, Increased palpitations (irregular heartbeat), Calf discomfort, Uncontrolled pain Cleanse incision/area with: Keep Dressing Clean & Dry Allergies/Adverse Reactions: Allergies celecoxib [From Celebrex] Adverse Reaction (Verified 07/18/18 06:05) sweating mycin antbx Adverse Reaction (Uncoded 07/18/18 06:05) Itching Medications to take at Discharge Lisinopril [Zestril] 40 mg PO DAILY 05/31/13 Multivitamins,Therapeutic [Multivitamin] 1 tablet PO DAILY 05/31/13 Zolmitriptan [Zomig] 5 mg PO DAILY PRN PRN 05/31/13 Amlodipine [Norvasc] 2.5 mg PO DAILY 04/24/18 Aspirin [Aspirin, Baby] 81 mg PO DAILY@0800 04/24/18 Cranberry 400 mg PO BID 04/24/18 Cyanocobalamin (Vitamin B-12) [Vitamin B-12] 1,000 mcg PO DAILY 04/24/18 Gabapentin [Neurontin] 400 mg PO TID 04/24/18 Hydrochlorothiazide [Hctz] 25 mg PO DAILY 04/24/18 Hydrocodone/Acetaminophen [Hydrocodone-Acetamin 7.5-325] 1 tab PO BID 04/24/18 Loratadine [Claritin] 10 mg PO DAILY PRN 04/24/18 Methocarbamol [Robaxin] 500 mg PO QHS 04/24/18 [place]-3 Fatty Acids/Fish Oil [Fish Oil 1,000 mg Capsule] 3 each PO DAILY 04/24/18 Acetaminophen [Tylenol] 500 mg PO Q6H PRN #1 tablet 04/25/18 Pantoprazole Sodium 40 mg PO DAILY #30 tablet. 04/25/18 Ascorbic Acid [Vitamin C] 250 mg PO BID 07/13/18 Bupropion HCl [Wellbutrin Xl] 150 mg PO DAILY 07/13/18 Citalopram [Celexa] 20 mg PO DAILY 07/13/18 Magnesium Oxide [Magnesium] 250 mg PO DAILY 07/13/18 traZODone [Desyrel] 50 mg PO QHS 07/13/18 Oxycodone [Oxyir] 5 mg PO Q6H PRN PRN 7 Days #30 tab 07/18/18 The following prescriptions were given: Oxycodone [Oxyir] 5 mg PO Q6H PRN PRN 7 Days #30 tab PRN Reason: Pain Primary Care Physician: Reji Mckeon MD [Primary Care Provider] - Test Results: Test results from this visit will be discussed in further detail at your follow- up appointment, if applicable. Please Follow Up With: Lamar Perera DPM - Please follow up at your previously scheduled post operative appointment in one week. Proposed Discharge Date: 07/18/18
--- NOTE | 2018-07-18 11:14 | RAD_ITS ---
STUDY: X-RAY - LEFT FOOT CLINICAL: Female, 63 years old. Postoperative evaluation for arthrodesis. TECHNIQUE: 3 view(s) of the foot. COMPARISON: None. FINDINGS: The patient is status post arthrodesis of the talus and navicular bones. RAD/Foot min 3 Views IMPRESSION: Status post arthrodesis of the talus and navicular bone. Electronically Signed: Nikos Romero MD at 14:25 EST , Service support ,
--- NOTE | 2018-07-19 23:22 | PCM.OPRPT ---
Report of Operation Date of Procedure: 07/18/18 Pre-Operative Diagnosis: L TN joint arthritis, L dorsal TN joint exostosis Post-Operative Diagnosis: same Surgery/Procedure Performed:: L TN arthrodesis, L TN dorsal exostectomy Description of Surgical Findings:: see dictation carpenter cradle and dolly: Sriram Peñaloza Type of Anesthesia:: General/Supplemental Specimen's removed: L TN dorsal bone/beaking Estimated Blood Loss (mL): minimal Description of Procedure: Indications: Pt is a 63 yo F with longstanding left foot pain and arthritis who has failed conservative treatment over the years. An MRI revealed severe arthrosis of the the TN joint. WE had discussed previously also doing a NC arthrodesis, however, this would depend on intraoperative findings as I do not want to compromise the navicular with excessive resection. Pt understands and agrees to this. Pt would like surgical intervention today. All risks, complications, and alternatives were discussed with the patient, and the patient signed an informed consent. No guarantees were given. Procedure: On 07/18/2018, Chloe Packer was visually and verbally identified in the preoperative holding area. The consent form was again reviewed with the patient, as were all risks, complications, and alternatives and the patient wished to proceed with the proposed surgery. The left foot was marked as the correct operative extremity. The patient was brought to the operating room and placed on the operating room table in the normal SUPINE position. After induction by anesthesia, a surgical time out was performed and all present were in agreement. a pneumatic thigh tourniquet was then placed. At this time the left lower extremity was prepped and draped in the usual sterile fashion. after exsanguination with an esmarch the tourniquet was inflated to 300 mmHg. At this time attention was directed to the left foot medial column. Using a #15 blade, a longitudinal incision was placed starting from the tip of the medial malleolus extending distally just past the navicular medially. The incision was bluntly carried deep through the subcutaneous tissues with careful attention paid to all bleeders, which were clamped and tied or bovied as necessary. All vital neurovascular structures were retracted. It was noted that there was extensive dorsal osteophyte formation and beaking at the talonavicular bone. This was removed with osteotomes and ronguers and sent for pathology. I did not encounter a ganglion cyst or viscous fluid consistent with a ganglion. The talonavicular joint was then exposed sharply at the dorsomedial aspect and periosteal capsular structures were free from the joint as needed. The joint was severely compressed. A Hinterman engraver pantograph was placed with two temporary wires, one of the talus and one in the navicular and this was confirmed on intra operative fluoroscopy. The joint was expanded and it was noted that the residual cartilage was significantly thinned and pitted on both the talar head and the navicular. The joint was then resected with the a combination of osteotomes, ronguers, curettes, and a 2.5 drill until good bleeding subchondral bone was visualized on both the talus and navicular joint. This joint was resected with care to maintain the anatomic contours of the joint. Further removal of dorsal osteophytes that expanded laterally across the anterior ankle was performed as they were palpable through the skin. The distractor was removed and the joint was reduced. A temporary k wire was placed from distal plantar medial to proximal dorsal lateral. This was used as a temporary fixation for the talonavicular joint. Reduction was confirmed on intraoperative fluoroscopy. At this time a [place] 2 TN joint plate template and k wire were placed. Positioning was confirmed on intra operative fluoroscopy. Then per agency service coordinator's guidelines, The template was removed leaving the k wire to guide the compression screw slot reaming. After this was reamed the plate was placed and per AO technique the distal two screw hole were filled with locking screws. The compression screw was the drilled, measured and placed, stopping when the head of the screw was at the level of the plate. The temporary k wire fixation was then removed. The compression screw was tightened and two locking screws where then drilled, measured and placed proximally. All screws were tightened. The bone to bone apposition of the joint was directly visualized. Alignment and compression were also confirmed on intraoperative fluoroscopy. The incision was flushed with copious amounts of normal sterile saline and and closure was initiated. 2.0 vicryl was used for deep layers, 3.0 vicryl for subcutaneous tissue and 3.0 prolene for skin. 30 cc of 0.5% marcaine was then injected in an ankle block. Adaptic and Dry,sterile dressing were applied along with a multilayer compression dressing to aid in the reduction of edema and pain and well as increase stability. A well padded posterior splint was then applied. Total tourniquet time was 121 minutes with immediate capillary refill noted to all digits upon deflation. Intra operative fluoroscopy was utilized throughout the case, > 1 hour, to aid in visualization and confirmation of fracture reduction and screw and plate fixations. Interpretation of the images was vital to my decision making process. The patient tolerated the procedure and anesthesia well. The patient was then transported to the postanesthesia care unit by a member of the anesthesia team and myself with all vital signs stable and neurovascular status of the Left lower extremity equal to pre-operative levels. At the end of the case all sponge, needle and instrument counts were found to be correct. Grafts/Implants Used: [place] 2 plate and screws - Complications none - Admit VTE Documentation VTE Present on Admission: No VTE Mechan Device Prophylaxis: SCD's, Knee High ASHLYN Hose VTE Pharm Prophylaxis ordered?: Yes
== END 2018-07-18 15:20 | disposition home or self-care (01) ==
LOC: SDC 05:21 → AC 05:21
PROVIDERS: Family Provider Family Medicine; PCP Family Medicine; Referring Provider Podiatrist Foot & Ankle Surgery; Visit Provider Podiatrist Foot & Ankle Surgery
PROC: (CPT 28740; principal; 2018-07-18 07:00)
DX: M19.072 Primary osteoarthritis, left ankle and foot (principal); M65.872 Other synovitis and tenosynovitis, left ankle and foot; F41.9 Anxiety disorder, unspecified; F32.9 Major depressive disorder, single episode, unspecified; E78.00 Pure hypercholesterolemia, unspecified; Z79.899 Other long term (current) drug therapy; Z79.82 Long term (current) use of aspirin; I10 Essential (primary) hypertension; Z86.73 Personal history of transient ischemic attack (TIA), and cerebral infarction without residual deficits
CPT/HCPCS: 01480; 28740; 64445; 73630; 76000; 88304; 88305; 88311; C1713; J7120; J2405

== ENCOUNTER → 2020-02-01 16:23 | Outpatient (CLI) | payer MEDICARE, SELFPAY ==
[2018-07-18 06:12] VITALS: BMI 34.2
--- NOTE | 2020-02-01 16:29 | US_ITS ---
STUDY: RENAL ULTRASOUND - COMPLETE REASON FOR EXAM: Female, 64 years old. RECURRING UTI''S TECHNIQUE: Ultrasound evaluation of the kidneys was performed with real-time and static arvizu-scale imaging. COMPARISON: None. FINDINGS: RIGHT KIDNEY: Normal location of the right kidney, which is normal in size. The right kidney measures 10.4 x 6 x 5.5 cm. There is a normal cortex of the right kidney. The renal cortex measures 1.6 cm. There is no right renal mass or cyst. There are no right renal calculi. There is no right hydronephrosis. DISTAL RIGHT URETER: There is non-visualization of the distal right ureter. There is no demonstrated right ureterovesical junction calculus. There is a visualized right ureteral jet. LEFT KIDNEY: Normal location of the left kidney, which is normal in size. The left kidney measures 10.8 x 5.6 x 4.9 cm. There is a normal cortex of the left kidney. The renal cortex measures 1.4 cm. There is no left renal mass or cyst. There are no left renal calculi. There is no left hydronephrosis. DISTAL LEFT URETER: There is non-visualization of the distal left ureter. There is no demonstrated left ureterovesical junction calculus. There is a visualized left ureteral jet. BLADDER: The distended urinary bladder has a volume of 396.77 ml. The empty urinary bladder has a volume of 74.82 ml. There is a normal wall thickness of the distended urinary bladder. There is no demonstrated mass within the urinary bladder. There are no demonstrated bladder calculi. US/Kidney and Bladder IMPRESSION: Normal ultrasound of the kidneys and urinary bladder. Electronically Signed: Reji Farah MD at 22:17 EDT , Service support ,
== END ==
PROVIDERS: PCP Family Medicine; Referring Provider Urology; Visit Provider Urology
DX: N39.0 Urinary tract infection, site not specified (principal)
CPT/HCPCS: 76770

== ENCOUNTER 2021-06-01 14:34 | Outpatient (CLI) | payer MEDICARE, SELFPAY ==
[2021-06-01 14:54] VITALS: BP 144/81; PULSE 65; RESP 16; TEMP 37.1; O2SAT 96; BMI 28.4
[2021-06-01] MEDS: 0.9% Saline Lock 10 ML Syringe IV (14:55)
[2021-06-01 15:36] VITALS: BP 141/90; PULSE 61; RESP 16; TEMP 37.2; O2SAT 96
[2021-06-01 16:31] VITALS: BP 154/91; PULSE 57; RESP 16; TEMP 36.9; O2SAT 98
== END 2021-06-01 16:40 | disposition home or self-care (01) ==
LOC: MS3OUT 14:34 → MS3 14:35
PROVIDERS: PCP Family Medicine; Referring Provider Nurse Practitioner Adult Health; Visit Provider Nurse Practitioner Adult Health
DX: Z23 Encounter for immunization (principal); U07.1 COVID-19
CPT/HCPCS: J7050; M0245; Q0245; A4216

== ENCOUNTER → 2021-11-23 | Outpatient (CLI) | payer MEDICARE, SELFPAY ==
[2021-11-23 10:25] LABS: Mucous, Urine 0 SEEN /hpf (<or=2+); Red Blood Cells-Urine 0 SEEN /hpf (0-5)
[2021-11-23 10:38] LABS: Color, Urine Yellow (Yellow); Glucose, Dipstick Normal (Normal); Ketone-Dipstick Negative (Negative); Leukocyte Esterase-Dipstick 500 /ul (Negative); Nitrite-Dipstick Positive (Negative); Occult Blood-Urine Negative /ul (Negative); Protein-Dipstick Negative (Negative); Specific Gravity, Urine 1.015 (1.002-1.030); Urine Bilirubin Dipstick Negative (Negative); Urine Clarity Sl. Cloudy (Clear); Urine Urobilinogen 1 mg/dl (Normal)
[2021-11-23 10:46] LABS: Bacteria 2+ /hpf (None Seen); Squamous Epithelial Cells - UA 0-5 SEEN /hpf (5-10); White Blood Cells 25-50 SEEN /hpf (0-5)
== END | disposition home or self-care (01) ==
LOC: LABSPEC 10:15
PROVIDERS: PCP Family Medicine; Visit Provider Physician Assistant Surgical
DX: R30.9 Painful micturition, unspecified (principal)
CPT/HCPCS: 81001; 87086; 87088

== ENCOUNTER → 2022-07-20 | Outpatient (CLI) | payer MEDICARE, SELFPAY ==
[2022-07-20 10:43] LABS: Mucous, Urine 0 SEEN /hpf (<or=2+)
[2022-07-20 10:48] LABS: Color, Urine Yellow (Yellow); Glucose, Dipstick Normal (Normal); Ketone-Dipstick 5 mg/dl (Negative); Leukocyte Esterase-Dipstick 500 /ul (Negative); Nitrite-Dipstick Positive (Negative); Occult Blood-Urine 250 /ul (Negative); Protein-Dipstick 30 mg/dl (Negative); Urine Bilirubin Dipstick Negative (Negative); Urine Clarity Clear (Clear); Urine Urobilinogen Normal (Normal)
[2022-07-20 10:56] LABS: Bacteria 2+ /hpf (None Seen); Red Blood Cells-Urine 0-5 SEEN /hpf (0-5); Squamous Epithelial Cells - UA 0-5 SEEN /hpf (5-10); White Blood Cells 10-25 SEEN /hpf (0-5)
== END | disposition home or self-care (01) ==
PROVIDERS: PCP Family Medicine; Visit Provider Physician Assistant Surgical
DX: N30.90 Cystitis, unspecified without hematuria (principal); R30.0 Dysuria
CPT/HCPCS: 81001; 87086; 87088; 87186

== ENCOUNTER → 2022-08-18 | Outpatient (CLI) | payer MEDICARE, SELFPAY ==
--- NOTE | 2022-08-18 10:20 | RAD_ITS ---
STUDY: X-RAY - LEFT HAND REASON FOR EXAM: Female, 67 years old. Psoriatic arthropathy. TECHNIQUE: 3 view(s) of the hand. COMPARISON: None. FINDINGS: Osteopenia. Mild arthrosis of the radiocarpal articulation. Mild arthrosis of the distal radioulnar joint. Moderate arthrosis of the radial carpal row of the wrist. Moderate arthrosis of the first CMC joint. Moderate arthrosis of the MCP and IP joints most marked at the MCP joints of the second through fourth digits. Erosive changes of the 4 MCP joint. Central erosive changes of the PIP and DIP joints of the fifth digit. Normal soft tissues. RAD/Hand Min 3 Views IMPRESSION: Osteopenia with diffuse osteoarthritic changes. 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 An erosive arthropathy such as psoriasis or rheumatoid cannot be excluded, given the findings of the fourth MCP joint. No acute abnormality. Electronically Signed: Harry Mendez, at 15:41 EST ,
--- NOTE | 2022-08-18 10:20 | RAD_ITS ---
STUDY: X-RAY - RIGHT HAND REASON FOR EXAM: Female, 67 years old. Psoriatic arthropathy. TECHNIQUE: 3 view(s) of the hand. COMPARISON: None. FINDINGS: Osteopenia. Mild arthrosis of the radiocarpal articulation. Mild arthrosis of the distal radioulnar joint. Mild arthrosis of the radial carpal row of the wrist. Mild arthrosis of the first CMC joint.. Mild arthrosis of the MCP and IP joints. Normal soft tissues. RAD/Hand Min 3 Views IMPRESSION: Osteopenia with osteoarthritic changes as described. No acute abnormality, chondrocalcinosis or erosive changes. Electronically Signed: Harry Mendez, at 15:42 EST ,
[2022-08-18 12:32] LABS: Color, Urine Yellow (Yellow); Glucose, Dipstick Normal (Normal); Ketone-Dipstick Negative (Negative); Leukocyte Esterase-Dipstick 100 /ul (Negative); Nitrite-Dipstick Negative (Negative); Occult Blood-Urine Negative /ul (Negative); Protein-Dipstick Negative (Negative); Urine Bilirubin Dipstick Negative (Negative); Urine Clarity Sl. Cloudy (Clear); Urine Urobilinogen Normal (Normal); Urine pH 6.5 (5.0 - 8.0)
[2022-08-18 12:37] LABS: Erythrocyte Sedimentation Rate 3 mm/hr (0-30)
[2022-08-18 12:44] LABS: Protein, Urine (Random) < 6.0 mg/dL (<11.9)
[2022-08-18 12:49] LABS: Absolute Lymphocyte Count 2.13 X10^3/uL (0.83-4.51); Absolute Neutrophil Count 1.7 X10^3/uL (2.0-7.7); Basophil# 0.04 X10^3/uL; Basophil% 0.9 % (0-1); Eosinophil# 0.12 X10^3/uL; Eosinophils% 2.8 % (0-5); Hematocrit 39.5 % (37-47); Hemoglobin 12.7 g/dL (12.0-15.0); Lymphocyte # 2.13 X10^3/ul (0.83-4.51); Lymphocyte % 49.1 % (19-41); Mean Corp Hgb Conc 32.2 g/dL (32-36); Mean Corpuscular Hgb 31.1 pg (27.0-32.0); Mean Corpuscular Volume 96.6 fL (81-99); Mean Platelet Vol. 10.3 fl (6.2-12.0); Monocyte# 0.31 X10^3/uL; Monocyte% 7.1 % (0-10); NRBC Flagged by Analyzer 0 % (0-5); Neutrophil # 1.73 X10^3/uL (2.7-7.7); Neutrophil % 39.9 % (47-70); Platelet Count 213 K/mm3 (150-450); RBC Distribution Width CV 11.8 % (11.6-14.6); RBC Distribution Width SD 41.8 fl (35.1-43.9); Red Blood Count 4.09 M/mm3 (4.2-5.4); White Blood Count 4.3 K/mm3 (4.4-11.0)
[2022-08-18 13:16] LABS: ALB/GLOB Ratio 1.5 RATIO (0.9-2.4); AST(SGOT) 18 U/L (15-37); Alanine Aminotransfer ALT/SGPT 29 U/L (13-56); Albumin, Serum 3.6 g/dL (3.2-5.0); Alkaline Phosphatase 61 U/L (45-117); Anion Gap 4 (5-15); BUN 16 mg/dL (7-18); BUN/Creat Ratio 15.1 RATIO (10-20); CRP < 2.90 mg/L (0.0-3.0); Calcium,Total 9.5 mg/dL (8.5-10.1); Chloride 107 mmol/L (98-107); Creatinine, Serum 1.06 mg/dL (0.55-1.02); EST Glomerular Filtration Rate 55 mL/min (>60); Est Glom Filt Rate - Afr Amer 66 mL/min (>60); Globulin 2.4 g/dL (2.2-4.2); Glucose 97 mg/dL (74-106); Potassium 4.2 mmol/L (3.5-5.1); Rheumatoid Factor < 10.0 IU/mL (<15); Sodium Level 141 mmol/L (136-145)
[2022-08-18 13:31] LABS: Hepatitis B Surface Antibody Reactive; Hepatitis B Surface Antigen Non-Reactive (Nonreactive); Hepatitis C Antibody Non-Reactive (Nonreactive)
[2022-08-26 21:07] LABS: Complement C3 104 mg/dL (82-167)
[2022-08-26 22:59] LABS: CCP IgG Antibodies 4 units (0-19); HLA B27 Negative (.)
== END | disposition home or self-care (01) ==
LOC: MTLAB 10:18
PROVIDERS: PCP Family Medicine; Visit Provider Internal Medicine Rheumatology
DX: L40.59 Other psoriatic arthropathy (principal); M35.00 Sjogren syndrome, unspecified; L40.8 Other psoriasis
CPT/HCPCS: 36415; 73130; 80053; 81002; 81374; 82570; 84156; 85025; 85652; 86140; 86160; 86200; 86431; 86706; 86803; 87340

== ENCOUNTER → 2022-12-15 | Outpatient (CLI) | payer MEDICARE, SELFPAY ==
[2022-12-15 13:06] LABS: Absolute Neutrophil Count 3.1 X10^3/uL (2.0-7.7); Basophil# 0.03 X10^3/uL; Basophil% 0.5 % (0-1); Eosinophil# 0.07 X10^3/uL; Eosinophils% 1.3 % (0-5); Hematocrit 38.3 % (37-47); Hemoglobin 13.2 g/dL (12.0-15.0); Lymphocyte % 34.6 % (19-41); Mean Corp Hgb Conc 34.5 g/dL (32-36); Mean Corpuscular Hgb 33.8 pg (27.0-32.0); Mean Platelet Vol. 10.1 fl (6.2-12.0); Monocyte% 7.3 % (0-10); NRBC Flagged by Analyzer 0 % (0-5); Neutrophil # 3.07 X10^3/uL (2.7-7.7); Neutrophil % 55.9 % (47-70); Platelet Count 217 K/mm3 (150-450); RBC Distribution Width CV 13.2 % (11.6-14.6); RBC Distribution Width SD 46.4 fl (35.1-43.9); Red Blood Count 3.91 M/mm3 (4.2-5.4); White Blood Count 5.5 K/mm3 (4.4-11.0)
[2022-12-15 13:19] LABS: ALB/GLOB Ratio 1.4 RATIO (0.9-2.4); AST(SGOT) 17 U/L (15-37); Alanine Aminotransfer ALT/SGPT 29 U/L (13-56); Albumin, Serum 3.7 g/dL (3.2-5.0); Alkaline Phosphatase 63 U/L (45-117); Anion Gap 5 (5-15); BUN 16 mg/dL (7-18); BUN/Creat Ratio 15.1 RATIO (10-20); Calcium,Total 9.5 mg/dL (8.5-10.1); Chloride 108 mmol/L (98-107); Creatinine, Serum 1.06 mg/dL (0.55-1.02); EST Glomerular Filtration Rate 55 mL/min (>60); Est Glom Filt Rate - Afr Amer 66 mL/min (>60); Globulin 2.7 g/dL (2.2-4.2); Glucose 97 mg/dL (74-106); Potassium 3.7 mmol/L (3.5-5.1); Protein, Total 6.4 g/dL (6.4-8.2); Sodium Level 140 mmol/L (136-145)
== END | disposition home or self-care (01) ==
LOC: MTLAB 09:44
PROVIDERS: PCP Family Medicine; Referring Provider Internal Medicine Rheumatology; Visit Provider Internal Medicine Rheumatology
DX: L40.59 Other psoriatic arthropathy (principal); Z79.899 Other long term (current) drug therapy; M79.7 Fibromyalgia
CPT/HCPCS: 36415; 80053; 85025

== ENCOUNTER → 2023-02-22 | Outpatient (CLI) | payer MEDICARE, SELFPAY ==
[2023-02-22 10:08] LABS: Absolute Lymphocyte Count 1.58 X10^3/uL (0.83-4.51); Absolute Neutrophil Count 1.6 X10^3/uL (2.0-7.7); Basophil# 0.03 X10^3/uL; Basophil% 0.8 % (0-1); Eosinophil# 0.14 X10^3/uL; Eosinophils% 3.8 % (0-5); Hematocrit 39.5 % (37-47); Hemoglobin 12.8 g/dL (12.0-15.0); Lymphocyte # 1.58 X10^3/ul (0.83-4.51); Lymphocyte % 43.3 % (19-41); Mean Corp Hgb Conc 32.4 g/dL (32-36); Mean Corpuscular Volume 101.8 fL (81-99); Mean Platelet Vol. 9.7 fl (6.2-12.0); Monocyte% 8.2 % (0-10); NRBC Flagged by Analyzer 0 % (0-5); Neutrophil # 1.58 X10^3/uL (2.7-7.7); Neutrophil % 43.4 % (47-70); Platelet Count 192 K/mm3 (150-450); RBC Distribution Width CV 12.8 % (11.6-14.6); RBC Distribution Width SD 46.8 fl (35.1-43.9); Red Blood Count 3.88 M/mm3 (4.2-5.4); White Blood Count 3.7 K/mm3 (4.4-11.0)
[2023-02-22 10:41] LABS: ALB/GLOB Ratio 1.4 RATIO (0.9-2.4); AST(SGOT) 14 U/L (15-37); Alanine Aminotransfer ALT/SGPT 24 U/L (13-56); Albumin, Serum 3.4 g/dL (3.2-5.0); Alkaline Phosphatase 74 U/L (45-117); Anion Gap 5 (5-15); BUN 16 mg/dL (7-18); BUN/Creat Ratio 16.1 RATIO (10-20); Chloride 109 mmol/L (98-107); Creatinine, Serum 0.99 mg/dL (0.55-1.02); EST Glomerular Filtration Rate 59 mL/min (>60); Est Glom Filt Rate - Afr Amer 71 mL/min (>60); Globulin 2.5 g/dL (2.2-4.2); Glucose 141 mg/dL (74-106); Potassium 3.6 mmol/L (3.5-5.1); Protein, Total 5.9 g/dL (6.4-8.2); Sodium Level 142 mmol/L (136-145)
== END | disposition home or self-care (01) ==
LOC: MTLAB 08:57
PROVIDERS: PCP Family Medicine; Visit Provider Internal Medicine Rheumatology
DX: L40.59 Other psoriatic arthropathy (principal); Z79.899 Other long term (current) drug therapy; M79.7 Fibromyalgia
CPT/HCPCS: 36415; 80053; 85025

== ENCOUNTER → 2023-03-19 | Outpatient (CLI) | payer MEDICARE, SELFPAY ==
[2023-03-19 16:33] LABS: Mucous, Urine 0 SEEN /hpf (<or=2+)
[2023-03-19 16:40] LABS: Glucose, Dipstick Normal (Normal); Ketone-Dipstick Negative (Negative); Leukocyte Esterase-Dipstick 500 /ul (Negative); Nitrite-Dipstick Positive (Negative); Occult Blood-Urine 250 /ul (Negative); Protein-Dipstick 30 mg/dl (Negative); Urine Clarity Sl. Cloudy (Clear); Urine Urobilinogen 8 mg/dl (Normal)
[2023-03-19 16:48] LABS: Color, Urine SEE COMMENT BELOW (Yellow); Urine Bilirubin Dipstick 6 mg/dL (Negative)
[2023-03-19 16:55] LABS: Bacteria 3+ /hpf (None Seen); Red Blood Cells-Urine 10-25 SEEN /hpf (0-5); Squamous Epithelial Cells - UA 0-5 SEEN /hpf (5-10); White Blood Cells >100 SEEN /hpf (0-5)
== END | disposition home or self-care (01) ==
PROVIDERS: PCP Family Medicine; Visit Provider Physician Assistant
DX: R30.0 Dysuria (principal); N39.0 Urinary tract infection, site not specified
CPT/HCPCS: 81001; 87077; 87086; 87088; 87186

== ENCOUNTER → 2023-04-25 | Outpatient (CLI) | payer MEDICARE, SELFPAY ==
[2023-04-25 10:28] LABS: Absolute Lymphocyte Count 2.02 X10^3/uL (0.83-4.51); Absolute Neutrophil Count 1.7 X10^3/uL (2.0-7.7); Basophil# 0.05 X10^3/uL; Basophil% 1.1 % (0-1); Eosinophil# 0.18 X10^3/uL; Eosinophils% 4.1 % (0-5); Hematocrit 39.5 % (37-47); Hemoglobin 13.1 g/dL (12.0-15.0); Lymphocyte # 2.02 X10^3/ul (0.83-4.51); Lymphocyte % 45.6 % (19-41); Mean Corp Hgb Conc 33.2 g/dL (32-36); Mean Corpuscular Hgb 33.1 pg (27.0-32.0); Mean Corpuscular Volume 99.7 fL (81-99); Mean Platelet Vol. 9.8 fl (6.2-12.0); Monocyte# 0.45 X10^3/uL; Monocyte% 10.2 % (0-10); NRBC Flagged by Analyzer 0 % (0-5); Neutrophil # 1.72 X10^3/uL (2.7-7.7); Neutrophil % 38.8 % (47-70); Platelet Count 225 K/mm3 (150-450); RBC Distribution Width CV 12.1 % (11.6-14.6); RBC Distribution Width SD 44.1 fl (35.1-43.9); Red Blood Count 3.96 M/mm3 (4.2-5.4); White Blood Count 4.4 K/mm3 (4.4-11.0)
[2023-04-25 10:53] LABS: ALB/GLOB Ratio 1.3 RATIO (0.9-2.4); AST(SGOT) 14 U/L (15-37); Alanine Aminotransfer ALT/SGPT 24 U/L (13-56); Albumin, Serum 3.4 g/dL (3.2-5.0); Alkaline Phosphatase 71 U/L (45-117); Anion Gap 6 (5-15); BUN 15 mg/dL (7-18); BUN/Creat Ratio 14.9 RATIO (10-20); Chloride 106 mmol/L (98-107); Creatinine, Serum 1.01 mg/dL (0.55-1.02); EST Glomerular Filtration Rate 58 mL/min (>60); Est Glom Filt Rate - Afr Amer 70 mL/min (>60); Globulin 2.6 g/dL (2.2-4.2); Glucose 103 mg/dL (74-106); Sodium Level 141 mmol/L (136-145)
== END | disposition home or self-care (01) ==
LOC: MTLAB 08:13
PROVIDERS: PCP Family Medicine; Referring Provider Internal Medicine Rheumatology; Visit Provider Internal Medicine Rheumatology
DX: L40.59 Other psoriatic arthropathy (principal); M35.00 Sjogren syndrome, unspecified; Z79.899 Other long term (current) drug therapy; M79.7 Fibromyalgia; L40.8 Other psoriasis; M17.0 Bilateral primary osteoarthritis of knee; M48.061 Spinal stenosis, lumbar region without neurogenic claudication
CPT/HCPCS: 36415; 80053; 85025

== ENCOUNTER → 2023-11-10 | Outpatient (CLI) | payer MEDICARE, SELFPAY ==
--- NOTE | 2023-11-10 10:55 | RAD_ITS ---
STUDY: X-RAY - BILATERAL RIBS WITH CHEST REASON FOR EXAM: Female, 68 years old. Relative fracture following a fall. TECHNIQUE - RIBS: 5 view(s) of the ribs. TECHNIQUE - CHEST: Single PA view of the chest. COMPARISON: Comparison is made with prior chest radiograph dated April 24, 2018. FINDINGS - RIBS : Normal visualized ribs without a demonstrated fracture. FINDINGS - CHEST: Increased linear markings at both lung bases suggestive of bibasilar linear atelectasis. There is no demonstrated pleural abnormality. Normal size heart. Normal mediastinum and jessica. Normal visualized pulmonary arteries. There is atherosclerotic tortuosity of the aortic arch and descending thoracic aorta. There are diffuse degenerative changes of the visualized thoracic spine. Dextroscoliosis. There is degenerative osteoarthritis of the bilateral shoulders. There is no demonstrated abnormality of the visualized soft tissue structures of the upper abdomen. RAD/Ribs Sam Min 4V w/PA Chest IMPRESSION: RIBS: Normal x-ray examination of the bilateral ribs. CHEST: Increased linear markings at the lung bases suggestive of bibasilar linear atelectasis. Electronically Signed: Nikos Romero MD at 12:22 EDT ,
== END | disposition home or self-care (01) ==
LOC: MTRAD 10:55
PROVIDERS: PCP Family Medicine; Referring Provider Nurse Practitioner; Visit Provider Nurse Practitioner
DX: T14.90XA Injury, unspecified, initial encounter (principal)
CPT/HCPCS: 71111

== ENCOUNTER → 2024-10-01 | Outpatient (CLI) | payer MEDICARE, SELFPAY | END | disposition home or self-care (01) | LOC: LABSPEC 10:30 | PROVIDERS: PCP Family Medicine; Visit Provider Nurse Practitioner Family | DX: R82.90 Unspecified abnormal findings in urine (principal) | CPT/HCPCS: 87077; 87086; 87088; 87186 ==

== ENCOUNTER → 2024-10-31 | Outpatient (CLI) | payer MEDICARE, SELFPAY ==
--- NOTE | 2024-10-31 13:48 | US_ITS ---
PROCEDURE: KIDNEY AND BLADDER 10/31/2024 REASON FOR EXAM: UTI TECHNIQUE: Ultrasound imaging of Kidney and bladder. COMPARISON: None available FINDINGS: Bladder volume 305 cc. Small amount of low-level echoes posteriorly within the bladder may represent debris. Ureteral jets are not seen during imaging. Postvoid bladder volume 146 cc. Voided volume 159 cc. The right kidney measures 11.6 x 5 x 4.3 cm with a cortical thickness of 1.6 cm. No right hydronephrosis, renal stone or perinephric edema seen. The left kidney measures 12.7 x 4.5 x 4.7 cm with a cortical thickness of 1.6 cm. A simple appearing interpolar left renal cyst measures 2.4 x 2.5 x 2 cm. Appearance of mild left hydronephrosis. No renal stones or perinephric edema identified. No free fluid seen. US/Kidney and Bladder IMPRESSION: Bladder volume 305 cc. Small amount of low-level echoes posteriorly within the bladder may represent debris. Ureteral jets are not seen during imaging. Postvoid bladder volume 146 cc. Voided volume 159 cc. Appearance of mild left hydronephrosis. No renal stones or perinephric edema id entified. Reading Location: [id number]
--- NOTE | 2024-10-31 13:51 | US_ITS ---
PROCEDURE: PELVIC (NON ) 10/31/2024 REASON FOR EXAM: ADENEXAL CYST TECHNIQUE: Transabdominal and transvaginal pelvic ultrasound COMPARISON: None available FINDINGS: Transabdominal and transvaginal imaging. Status post hysterectomy. Bladder volume 305 cc. Suggestion of a small amount of low-level echoes dependently at the bladder may represent debris. The right ovary measures 3.2 x 2.1 x 2.6 cm. There is a simple appearing cyst measuring 2 x 1.8 x 1.5 cm. There is evidence of vascular flow seen to the right ovary. No evidence of adnexal mass. The left ovary measures 5.2 x 4 x 4.4 cm and contains a simple appearing cyst measuring 4.7 x 3.3 x 3.6 cm. There is evidence of vascular flow seen to the left ovary. No adnexal mass seen. No free fluid seen. US/Pelvic (Non ) IMPRESSION: Status post hysterectomy. 4.7 cm left and 2 cm right simple appearing ovarian cystic lesions as above. M ay follow-up with [facility]. Reading Location: [id number]
== END | disposition home or self-care (01) ==
PROVIDERS: PCP Family Medicine; Referring Provider Obstetrics & Gynecology; Visit Provider Obstetrics & Gynecology
DX: N28.1 Cyst of kidney, acquired (principal); N13.30 Unspecified hydronephrosis; N39.0 Urinary tract infection, site not specified
CPT/HCPCS: 76770; 76856

== ENCOUNTER → 2024-11-23 | Outpatient (CLI) | payer MEDICARE, SELFPAY ==
--- NOTE | 2024-11-23 14:19 | CT_ITS ---
PROCEDURE: CT ABD/PELVIS W/WO CONTRAST 11/23/2024 REASON FOR EXAM: ABN IMAGING TECHNIQUE: CT ABD/PELVIS W/WO CONTRAST. Coronal and Sagittal reconstruction series were provided. ORAL CONTRAST TYPE: None. CONTRAST: [id number] 50 VOLUME: 100 mL One or more dose reduction techniques were used (e.g., Automated exposure control, adjustment of the mA and/or kV according to patient size, use of iterative reconstruction technique. RADIATION DOSE SUMMARY: CTDlvol: 22.07 mGy DLP: 1115 mGycm COMPARISON: Ultrasound on 10/31/2024. FINDINGS: Left renal simple cyst measuring 1.7 cm. Mild left hydroureteronephrosis without obstructing stone or mass lesion. Mild hepatic steatosis. Prior hysterectomy. Left ovarian simple cyst measuring 4.5 cm. Right ovarian simple cyst measuring 1.6 cm. Uncomplicated colonic diverticulosis. Mild osteopenia. Moderate diffuse spondylosis. Unremarkable prostheses of the hips. Grade 1 anterolisthesis of L4 on L5. Grade 1 anterolisthesis of L3 on L4. Mild chronic compression deformities of L1 and L2 vertebral bodies. Prior lower lumbar laminectomies. The visualized lung bases are unremarkable. Normal gallbladder and extrahepatic biliary system. Normal spleen. Normal pancreas. Normal bilateral adrenal glands. Normal size of the right kidney. There is no right renal mass. There are no right renal calculi. There is no right hydronephrosis. Normal visualized right ureter. Normal size of the left kidney. There is no left renal mass. There are no left renal calculi. Normal visualized stomach. Normal small intestine. The appendix is visualized and appears normal. There is no demonstrated peritoneal fluid. Normal abdominal aorta. Normal inferior vena cava. Normal retroperitoneum. Normal urinary bladder. There is no pelvic mass lesion or lymphadenopathy. There is no pelvic fluid. Well-defined benign sclerotic lesion in the right iliac bone island measuring 2.[address]/CT Abd/Pelvis W/WO Contrast IMPRESSION: Left renal simple cyst measuring 1.7 cm. Mild left hydroureteronephrosis without obstructing stone or mass lesion. Mild hepatic steatosis. Prior hysterectomy. Left ovarian simple cyst measuring 4.5 cm. Right ovarian simple cyst measuring 1.6 cm. Uncomplicated colonic diverticulosis. Mild osteopenia. Moderate diffuse spondylosis. Unremarkable prostheses of the hips. Grade 1 anterolisthesis of L4 on L5. Grade 1 anterolisthesis of L3 on L4. Mild chronic compression deformities of L1 and L2 vertebral bodies. Prior lower lumbar laminectomies. Reading Location[facility]
== END | disposition home or self-care (01) ==
LOC: CT 14:17
PROVIDERS: PCP Family Medicine; Referring Provider Urology; Visit Provider Urology
DX: R93.89 Abnormal findings on diagnostic imaging of other specified body structures (principal)
CPT/HCPCS: 74178; Q9967

== ENCOUNTER 2025-01-17 06:43 | Day surgery (SDC) | payer MEDICARE, SELFPAY ==
[2025-01-09 09:25] LABS: Hematocrit 39.4 % (37-47); Hemoglobin 13.7 g/dL (12.0-15.0); Mean Corp Hgb Conc 34.8 g/dL (32-36); Mean Corpuscular Volume 92.9 fL (81-99); Mean Platelet Vol. 9.6 fl (6.2-12.0); Platelet Count 210 K/mm3 (150-450); RBC Distribution Width CV 11.5 % (11.6-14.6); RBC Distribution Width SD 38.7 fl (35.1-43.9); Red Blood Count 4.24 M/mm3 (4.2-5.4); White Blood Count 4.7 K/mm3 (4.4-11.0)
[2025-01-09 10:12] LABS: Anion Gap 11 (5-15); BUN 13 mg/dL (4-19); BUN/Creat Ratio 11.9 RATIO (10-20); Calcium,Total 9.8 mg/dL (7.6-11.0); Carbon Dioxide 25.9 mmol/L (21.0-32.0); Chloride 103 mmol/L (98-108); Glucose 106 mg/dL (70-99); Potassium 4.1 mmol/L (3.3-5.1)
[2025-01-17] VITALS (9 sets, daily range): BP systolic 104–149; BP diastolic 51–110; PULSE 65–74; RESP 12–16; TEMP 36.2–36.9; O2SAT 91–97; BMI 31.9
[2025-01-17] MEDS: Lactated Ringers 1,000 ML 15 ML IV (07:20)
[2025-01-17] MEDS: Lactated Ringers 500 ML IV (08:56)
[2025-01-17] MEDS: Cefazolin 1 GM/5 ML Vial 2 GM IV (08:57)
[2025-01-17] MEDS: fentaNYL 100 MCG/2 ML Ampul IV (09:02)
== END 2025-01-17 10:15 | disposition home or self-care (01) ==
LOC: SDC 06:47 → AC 06:47
PROVIDERS: PCP Family Medicine; Referring Provider Urology; Visit Provider Urology
PROC: 0TJ98ZZ Inspection of Ureter, Via Natural or Artificial Opening Endoscopic (ICD-10-PCS; CPT 52352; principal; 2025-01-17 08:05)
DX: N13.6 Pyonephrosis (principal); N95.2 Postmenopausal atrophic vaginitis; N39.41 Urge incontinence; N81.6 Rectocele; N81.10 Cystocele, unspecified; I10 Essential (primary) hypertension; G89.4 Chronic pain syndrome; K21.9 Gastro-esophageal reflux disease without esophagitis; Z79.82 Long term (current) use of aspirin; Z79.899 Other long term (current) drug therapy; Z86.73 Personal history of transient ischemic attack (TIA), and cerebral infarction without residual deficits; Z87.440 Personal history of urinary (tract) infections
CPT/HCPCS: 52351; 00910; 36415; 76000; 80048; 85027; 93005; C1769; J2405